=== PATIENT | female | born 1955 | race Caucasian/White ===

== ENCOUNTER 2016-08-18 07:29 | Inpatient (IN) | payer MEDICARE, OTHER ==
--- NOTE | ~2016-08-18 | OR ---
Unit #: [id number] #: [id number] Patient: RAJ VALVERDE [id number] [address] [place], [place] [address] [id number] MR#: [id number] NAME: RAJ VALVERDE ROOM: [facility] Date of Procedure: 08/18/2016 Admission Date: 08/18/2016 Surgeon: Payton Iqbal M.D. : 1955 Attending Physician: Payton Iqbal M.D. Primary Care Physician: Cristian Adair D.O. OPERATIVE REPORT PREOPERATIVE DIAGNOSIS Right foot gangrene. POSTOPERATIVE DIAGNOSIS Right foot gangrene. PROCEDURES PERFORMED 1. Right foot transmetatarsal amputation (55734). 2. Right percutaneous Achilles tendon lengthening (74779). DELIVERY SPECIALIST Jagdeep Masters ANESTHESIA General. INDICATIONS FOR SURGERY The patient is a 60-year-old female with severe peripheral vascular disease and diabetes, who has undergone previous attempted right fourth and fifth toe and ray amputations, which has gone onto sandra dehiscence. The patient is now to undergo revision to a transmetatarsal amputation. DESCRIPTION OF PROCEDURE The patient was taken to the operating room and placed in supine position and general anesthetic was induced. The right foot was identified as the correct operative location during the time-out procedure. The IV antibiotic protocol was followed. The right foot was then prepped and draped in usual sterile fashion. A thigh tourniquet was applied, but was not utilized during the case. A dorsal and plantar fish-mouth type incision was made with care taken to ensure that the medial flaps were quite long. The first, second, and third metatarsal bases were then exposed subperiosteally. The microsagittal saw was used to cut the first, second, and third metatarsal shaft at the junction of the proximal 25% and distal 75%. The plantar skin flap was then sharply developed and the medial forefoot was removed. Bleeding was controlled with electrocautery. The plantar flap was then advanced laterally to cover the soft tissue defects laterally. The subcutaneous tissue was closed with 2-0 Vicryl. The dorsal aspect of the wound was then closed with the dorsal medial flap and this was positioned more plantarward. Subcutaneous tissue again was closed with 2-0 and 3-0 Vicryl. Skin was closed with 3-0 nylon oas-bpkj-kswn-far and simple Unit #: [id number] #: [id number] Patient: RAJ VALVERDE. The #11 knife blade was then used to perform a percutaneous Achilles tendon lengthening. The medial half of the Achilles tendon was severed 2.5 cm proximal to the insertion. A second lateral hemisection was performed 3 cm proximal to the first hemisection. A third medial hemisection was performed 3 cm proximal to the intermediate hemisection. The ankle was then dorsiflexed until 10 degrees of ankle dorsiflexion was easily obtained. These wounds were closed with Steri-Strips. Xeroform gauze, dressing, sponges, Webril, and a posterior fiberglass splint were applied. The patient was then transported to the recovery room in stable condition. ESTIMATED BLOOD LOSS Minimal. COMPLICATIONS None. SPECIMENS Forefoot. TOURNIQUET TIME Zero. Dictated by.Jagdeep Blair/jaylan TD: 08/18/2016 13:41 JOB #: [id number] OPERATIVE REPORT X Ferdinand Iqbal MD X PROCEDURE OPERATIVE NOTE
--- NOTE | ~2016-08-18 | A ---
[facility] Nutrition Therapy DATE: 08/19/16 Patient: RAJ VALVERDE Physician: ANITHA Address: [address] [facility] Room/Bed: [address] [place] [address], Zip: [place] [address] Admit Date: 08/18/16 Date of : [birth year] Height: 5 0 Weight: 149 68 NUTRITIONAL ASSESSMENT: REASON: CONSULT RE: DIET EDUCATION PT IS 60 Y.O. FEMALE ADMITTED FOR (R) FOOT GANGRENE HT: 5'0", WT: 149# (68 KG), BMI: 29.1 RD PROVIDED WRITTEN AND VERBAL CC DIET EDUCATION. RD PROVIDED LIST OF FOODS TO AVOID/LIMIT AND FOODS TO EAT MORE OFTEN. RD ALSO EMPHASIZED IMPORTANCE OF CONSUMING CONSISTENT MEAL SCHEDULE AND BALANCED MEALS. PT REPORTS DRINKING DIET SODAS DAILY. THIS RD ENCOURAGED TO DRINK MORE WATER IN PLACE OF DIET SODAS. PT VERBALIZED UNDERSTANDING OF THE TOPIC. PT REPORTED NO DIET QUESTIONS AT THIS TIME. RD TO REMAIN AVAILABLE. RECOMMENDATIONS: 1. ENCOURAGE COMPLIANCE OF CURRENT DIET ORDER-CC RD WILL F/U PER PROTOCOL Respectfully, VINCENT VERA MS, RD, LD [facility] cc: client file
--- NOTE | ~2016-08-18 | DS ---
Unit #: [id number] #: [id number] Patient: RAJ VALVERDE [id number] [address] [place], [place] [address] [id number] I MR#: [id number] NAME: RAJ VALVERDE ROOM: 453 Age: 60 Sex: F Admission Date: 08/18/2016 : 1955 Discharge Date: 08/21/2016 Attending Physician: Payton Iqbal M.D. Primary Care Physician: Cristian Adair D.O. DISCHARGE SUMMARY CHIEF COMPLAINT Right foot wound dehiscence. HISTORY OF PRESENT ILLNESS This 60-year-old female is 1 month status post right fourth and fifth toe and ray amputations for distal forefoot gangrene. Prior to surgery, the patient had undergone right superficial artery and popliteal artery stenting. Since her operation, she has been in rehabilitation where she has been receiving IV vancomycin. Cultures from her operation grew methicillin resistant Staphylococcus aureus. Her vascular surgeon, Dr. Lindsey, stated on July 28 that the patient may be unable to heal a foot amputation, but she will most likely be able to heal a talwx-kwm-cjru amputation. Unfortunately, the patient already has a left lnipg-hwr-acdc amputation and we are trying to preserve her right foot if possible because of sandra dehiscence of the right lateral foot wound, we are going to convert this to a transmetatarsal amputation. If this fails, she may require sxtbd-gpi-dvvk amputation. HOSPITAL COURSE The patient was taken to the operating room on the date of admission where she underwent right foot transmetatarsal amputation and Achilles tendon lengthening. She had a stable postoperative course. She was seen by the internal medicine service on a daily basis. Her diabetes was controlled with a sliding scale insulin. She continued to receive IV vancomycin. She received 1 unit of packed red blood cells on the second postoperative day because her hematocrit was 22.2. Dressing was changed on the second postoperative day. Wounds were healing appropriately and she was ready for discharge back to rehab on August 21, 2016. FINAL DIAGNOSES 1. Right foot wound dehiscence. 2. Peripheral vascular disease. 3. Insulin dependent diabetes. 4. Diabetic neuropathy. 5. Chronic anemia. PLAN 1. The patient was discharged back to rehabilitation. 2. She will continue occupational and physical therapies. 3. She should be nonweightbearing on the right foot for a total of three weeks. 4. Dressing should remain intact. If the dressing needs to be changed, please contact Dr. Iqbal for instructions. 5. Continue elevation of the wound. Unit #: [id number] #: [id number] Patient: RAJ VALVERDE 6. Follow up in my office in one week for dressing change and wound check. DISCHARGE MEDICATIONS Discharge medications are as follows: 1. Advair 250/50 Diskus 1 puff inhaled b.i.d. p.r.n. shortness of breath. 2. Triamcinolone 0.5% cream topical b.i.d. 3. Magnesium oxide 400 mg p.o. b.i.d. 4. Vancomycin 1 g IV q.24 hours through the PICC line. 5. Xarelto 10 mg p.o. daily for 2 weeks. 6. Neurontin 100 mg p.o. t.i.d. 7. PROzac 40 mg p.o. daily. 8. Trazodone 100 mg p.o. daily. 9. Claritin 10 mg p.o. b.i.d. p.r.n. 10. Amlodipine 10/20 mg 1 tab p.o. daily. 11. Lipitor 40 mg p.o. q.h.s. 12. Clonidine 0.1 mg p.o. b.i.d. 13. Lisinopril 10 mg p.o. daily. 14. Lantus insulin 20 units subcutaneously q.h.s. 15. Percocet 5/325 one or two p.o. q.6 hours p.r.n. pain. 16. Prilosec 20 mg p.o. daily. 17. Calcium plus vitamin D 1 p.o. daily. 18. Vitamin D 50,000 units p.o. weekly. 19. NovoLog insulin per sliding scale. Dictated by.Jagdeep Blair/jessie TD: 08/20/2016 08:49 JOB #: [id number] DISCHARGE SUMMARY X Ferdinand Iqbal MD X DISCHARGE SUMMARY
--- NOTE | ~2016-08-18 | EKG ---
PATIENT: RAJ VALVERDE UNIT #: [id number] Ventricular Rate: 90 BPM Atrial Rate: 90 BPM P-R Interval: 176 ms QRS Duration: 92 ms Q-T Interval: 382 ms QTC Calculation(Bezet): 467 ms P [place]: 64 degrees Calculated R [place]: -32 degrees Calculated T [place]: 16 degrees Diagnosis Line: Normal sinus rhythm Diagnosis Line: Left axis deviation Diagnosis Line: Abnormal ECG Diagnosis Line: When compared with ECG of 04-JUL-2016 06:55, Diagnosis Line: No significant change was found Diagnosis Line: Confirmed by BARB MALAGON MD ([id number]) on Diagnosis Line: 08/18/2016 12:09:06 PM INTERPRETING MD: JESSE
--- NOTE | ~2016-08-18 | HP ---
Unit #: [id number] #: [id number] Patient: RAJ VALVERDE [id number] [address] [place], [place] [address] [id number] MR#: [id number] NAME: RAJ VALVERDE ROOM: Age: Sex: F Admission Date: 08/18/2016 : 1955 Attending Physician: Payton Iqbal M.D. Primary Care Physician: Cristian Adair D.O. HISTORY AND PHYSICAL CHIEF COMPLAINT Right foot wound dehiscence. HISTORY OF PRESENT ILLNESS This 60-year-old female is one month status post right fourth and fifth toe and fourth and fifth ray resections for distal forefoot gangrene. Prior to surgery the patient had undergone right superficial femoral artery and popliteal artery stenting. Since her operation she has been in rehab where she has been receiving IV vancomycin through a PICC line. Cultures from her operation revealed MRSA. Her vascular surgeon, Dr. Lindsey, had stated on July 28 that the patient may be unable to heal a foot amputation but that she will most likely be able to heal a below the knee amputation. She now has sandra dehiscence of her wound with gangrene of the third toe. The patient is admitted for attempted revision to a complete transmetatarsal amputation. She is aware that if this does not work she will end up with a below the knee amputation. PAST MEDICAL HISTORY Past medical history is remarkable for hypercholesterolemia, insulin dependent diabetes, osteomyelitis, peripheral vascular disease, anemia, former smoker, hypertension, hyperlipidemia, hypothyroidism, osteoarthritis, uterine cancer. HOME MEDICATIONS Advair Diskus, calcium plus D, Claritin, clonidine, Flonase, gabapentin, insulin, Lipitor, lisinopril, magnesium oxide, omeprazole, pantoprazole, Prozac, tramadol, trazodone, triamcinolone cream, vitamin D. ALLERGIES Adhesive bandages, Cubicin, daptomycin, latex, penicillin. PAST SURGICAL HISTORY Left below the knee amputation, multiple left foot surgeries. PHYSICAL EXAMINATION GENERAL: In general this is an obese female in no acute distress. She is alert, oriented and cooperative. HEENT: Pharynx is clear. NECK: The neck is supple, without masses. HEART: Exam reveals a regular sinus rhythm without murmurs or gallops. LUNGS: The lungs are clear. ABDOMEN: The abdomen is soft and nontender, without masses or organomegaly. Unit #: [id number] #: [id number] Patient: RAJ VALVERDE EXTREMITIES: Evaluation of the right foot demonstrates sandra dehiscence of her lateral wound with gangrene of the third toe. Pulses are absent. Her hallux and second toe appear viable and capillary refill appears normal. Sensation is decreased in a stocking distribution. ADMITTING DIAGNOSIS Failed right attempted fourth and fifth toe amputations with forefoot gangrene. PLAN The patient will undergo attempted revision to transmetatarsal amputation and percutaneous Achilles tendon lengthening of her remaining right foot. This procedure was described along with the risks of bleeding, infection, nerve damage, failure of the wound to heal, need for higher level amputation. She understands the above risks and agrees to proceed. Dictated by Jagdeep Nguyen/dolores TD: 08/17/2016 19:22 JOB #: [id number] HISTORY AND PHYSICAL X Ferdinand Iqbal MD X HISTORY AND PHYSICAL
--- NOTE | ~2016-08-18 | CO ---
Unit #: [id number] #: [id number] Patient: RAJ VALVERDE [id number] [address] [place], [place] [address] [id number] I MR#: [id number] NAME: RAJ VALVERDE ROOM: 453 Age: 60 Sex: F Admission Date: 08/18/2016 : 1955 Attending Physician: Payton Iqbal M.D. Primary Care Physician: Cristian Adair D.O. Consultation Date: 08/18/2016 CONSULTATION REPORT REASON FOR CONSULTATION Postoperative diabetes management. HISTORY OF PRESENT ILLNESS The patient is a 60-year-old female with a past medical history of hypertension, hyperlipidemia, diabetes, peripheral vascular disease, chronic obstructive pulmonary disease, cervical cancer, chronic pain and anemia. She was admitted by Dr. Iqbal for right foot gangrene. Of note, the patient was hospitalized at [facility] 07/03/2016 through 07/08/2016 for gangrenous fifth toe of the right foot. Ultimately the patient underwent right superficial femoral artery and popliteal artery stenting. She subsequently had right fourth and fifth toe and fourth and fifth ray resection. She went to rehab, where she had been receiving IV vancomycin. She apparently had wound dehiscence with gangrene of the third toe. She underwent right transmetatarsal amputation today. HIPS was consulted for diabetes management. The patient states that her blood sugars are typically in the 150 to 250 range. She denies any chest pain. No difficulty breathing. No cough or cold symptoms. She states that her pain control is adequate. She is tolerating p.o. PAST MEDICAL HISTORY 1. Admission to [facility] 07/03/2016 through 07/08/2016 for gangrenous fifth toe of the right foot. Please see history of present illness for details. 2. Anemia. 3. Hypertension. 4. Hyperlipidemia. 5. Diabetes. 6. Peripheral vascular disease, status post stents to the lower extremities. 7. Chronic obstructive pulmonary disease, not on home oxygen. 8. Cervical cancer. 9. Chronic pain. PAST SURGICAL HISTORY 1. Lower extremity stenting. 2. Revision of left fvihl-qlu-elhc amputation. 3. Left lvhka-kfz-vnbg amputation. 4. Toe amputations. 5. Transmetatarsal amputation involving the right foot. 6. Hernia repair. 7. Hysterectomy. SOCIAL HISTORY Unit #: [id number] #: [id number] Patient: RAJ VALVERDE The patient is currently at rehab. There is no tobacco or alcohol use. FAMILY HISTORY The patient was a foster child and does not know her biological parents. REVIEW OF SYSTEMS A complete review of systems is negative except as indicated in the history of present illness. PHYSICAL EXAMINATION GENERAL: The patient is a female who is awake and alert, eating. VITALS: Temperature 97.3, pulse 85, blood pressure 149/75, respiratory rate 13. HEENT: The head is atraumatic. Mucous membranes are moist. NECK: Supple. Trachea midline. LUNGS: Clear to auscultation bilaterally with no increased work of breathing. HEART: Regular rate and rhythm. ABDOMEN: Soft and nontender with bowel sounds present in all four quadrants. EXTREMITIES: The left lower extremity has been previously amputated below the knee. The right foot demonstrates an elier bandage that is clean, dry and intact. NEUROLOGIC: The patient is awake and alert. She follows commands. PSYCHIATRIC: Mood and affect are normal. The patient is cooperative. SKIN: Skin of examined areas is warm and dry. DIAGNOSTIC STUDIES LABORATORY: CBC from this morning showed white blood cell count 12.6, hemoglobin 7.9, hematocrit 24.1. CMP notable for glucose 179, BUN 29, creatinine 1.1, alkaline phosphatase 99, albumin 2.5. CARDIOVASCULAR: EKG from today showed normal sinus rhythm with a rate of 90 beats per minute. ASSESSMENT The patient is a 60-year-old female with 1. Status post right transmetatarsal amputation. 2. Normocytic anemia. The patient's hemoglobin was 7.7 on 07/09/2016 and it is 7.9 today. Estimated blood loss per the operative report is not listed, but the dictation is pending. 3. Hypertension. 4. Hyperlipidemia. 5. Diabetes. 6. Peripheral vascular disease, status post lower extremity stenting. 7. Chronic obstructive pulmonary disease, not on home oxygen. 8. Cervical cancer. 9. Chronic pain. 10. Former smoker. PLAN 1. Regarding diabetes, I have ordered a hemoglobin A1c as well as low-sliding scale insulin with Accu-Cheks. 2. Regarding chronic obstructive pulmonary disease, I have ordered supplemental oxygen with p.r.n. duo-nebs. Thank you very much for the consultation. We will follow the patient Unit #: [id number] #: [id number] Patient: RAJ VALVERDE closely with you. Dictated by... Jagdeep Moore/gz TD: 08/18/2016 16:11 JOB #: [id number] CONSULTATION REPORT X Jenny Rodriguez MD CONSULTATION REPORT
--- NOTE | ~2016-08-18 | DS ---
Unit #: [id number] #: [id number] Patient: RAJ VALVERDE [id number] [address] [place], [place] [address] [id number] I MR#: [id number] NAME: RAJ VALVERDE ROOM: 453 Age: 60 Sex: F Admission Date: 08/18/2016 : 1955 Discharge Date: 08/24/2016 Attending Physician: Payton Iqbal M.D. Primary Care Physician: Cristian Adair D.O. DISCHARGE SUMMARY ADDENDUM The patient had some difficulty breathing and was seen by the dietetic aide who diagnosed her with mild acute on chronic kidney disease stage 3 associated with proteinuria. Her lisinopril was stopped temporarily. She was also receiving IV fluids for nausea. Her dressing was changed on her fifth postoperative day. Wounds were healing well. She was ready for discharge on August 24, 2016. PLAN The only change is that her lisinopril will be stopped and instead we will continue her on Cardizem at her current dose. She will follow up with me in my office in one week. Dictated by.Danisha. Jagdeep Nguyen/jeny TD: 08/24/2016 11:31 JOB #: [id number] DISCHARGE SUMMARY X Ferdinand Iqbal MD X DISCHARGE SUMMARY
--- NOTE | ~2016-08-18 | CO ---
Unit #: [id number] #: [id number] Patient: RAJ CHIN [id number] [address] [place], [place] [address] [id number] I MR#: [id number] NAME: RAJ CHIN ROOM: 453 Age: 60 Sex: F Admission Date: 08/18/2016 : 1955 Attending Physician: Payton Iqbal M.D. Primary Care Physician: Cristian Adair D.O. Consultation Date: 08/21/2016 CONSULTATION REPORT REASON FOR CONSULTATION Mild acute on chronic kidney disease. HISTORY OF PRESENT ILLNESS Ms. Chin is a pleasant 60-year-old white female with a longstanding history of diabetes, who was admitted back on the for ongoing care of a right foot gangrene. She has since had a partial amputation of the right foot after having undergone recent stenting to the right leg. The patient has been recovering here on the 4th floor and we were asked to see today for a bump in her creatinine. Again, the patient has been diabetic for over 20 years with what appears to be poor control. She is maintained on both lisinopril and Benicar. She does not use any NSAIDs at home. She has no history of kidney stones that she is aware of. She has had an amputation below the knee on the left side and denies any problems with swelling issues on the right. No urinary complaints. She did have some mild nausea earlier this morning. No chest discomfort or shortness of breath. She is a former smoker. PAST MEDICAL HISTORY Significant for chronic kidney disease, stage 3; hypertension; diabetes; anemia chronic disease; hyperlipidemia; peripheral vascular disease with previous stents to the leg; COPD; cervical cancer; and chronic pain syndrome. PAST SURGICAL HISTORY She has had a left gxeen-xqr-ikmw amputation, lower extremity stenting, toe amputations, hernia repair, and hysterectomy. CURRENT MEDICATIONS As follows; Xarelto 10 mg a day, Levemir insulin as directed, Colace 100 mg b.i.d., Prozac 40 mg a day, Os-Adelfo D daily, Symbicort inhaler, Lipitor 40 mg at bedtime, Neurontin 100 mg t.i.d., lisinopril 10 mg a day, Claritin 10 mg a day, magnesium oxide 400 mg b.i.d., clonidine 0.1 mg b.i.d., trazodone 100 mg daily, Protonix 40 mg daily, Norvasc 10 mg a day, Benicar 20 mg a day, sliding scale insulin and p.r.n. ALLERGIES She has quoted allergies to adhesives, penicillin, daptomycin. FAMILY HISTORY The patient is a foster child and does not know much about her family history other than the fact that a couple of family members have diabetes. She is unaware of any kidney failure or dialysis. Unit #: [id number] #: [id number] Patient: RAJ CHIN SOCIAL HISTORY The patient is a former smoker. Has currently been living at rehab. No alcohol or drugs use history. REVIEW OF SYSTEMS A complete 12-point review of systems was completed with the above findings. In addition, she denies any fevers or chills. No headache. No dizziness. No nosebleed, sore throat, or earache. No chest pain or palpitations. No cough or hemoptysis. No hematemesis. No bright red blood per rectum or melena. No hematuria. No abdominal pain. No rashes. No itching. No flank pain. No night sweats or hot flashes. No intolerance to heat or cold. No bleeding issues. No recent weight changes. Unless otherwise indicated, the review of systems was negative. PHYSICAL EXAMINATION VITAL SIGNS: The patient is afebrile, pulse 103, respiratory rate 18, and blood pressure 139/70. I's and O's are positive by 1400 mL. GENERAL: This is a 60-year-old white female, alert, eating lunch now, in no acute distress. HEENT: Head is atraumatic and normocephalic. Eyes show pale conjunctivae with no scleral icterus. No nasal drainage. No nosebleed. Oropharynx is moist. No thrush. NECK: Shows no rigidity, no JVD. HEART: Tachycardic, but regular with no murmurs, gallops, or rubs appreciated. LUNGS: Clear anteriorly with no wheezing or rhonchi. Breathing is nonlabored. ABDOMEN: Soft, nontender, and nondistended. Bowel sounds are present. EXTREMITIES: The patient has a left xzbru-dfl-fjxe amputation with prosthesis. Right lower leg and foot are dressed. She does not appear to have any right lower extremity edema. SKIN: Dry without rashes. MUSCULOSKELETAL: No CVA tenderness to palpation. NEUROLOGIC: Cranial nerves are grossly intact with no gross motor deficits. LYMPHATIC: There is no neck or cervical lymphadenopathy. PSYCHIATRIC: Mood appears normal, affect is somewhat flat. DIAGNOSTIC STUDIES LABORATORY RESULTS: Chemistry this morning noteworthy for a sodium of 134, potassium 4.9, Chloride 106, bicarb 25, glucose 330, BUN 35, creatinine 1.5, magnesium 2. Yesterday's creatinine was 1.4. Hemoglobin yesterday was 8.3, with no peripheral eosinophilia. Hemoglobin A1c was 9.4 on the . Looking back through 2017, her creatinine has ranged anywhere between 0.9 and 1.7. No recent urine studies here since 2015, but that one did have 2+ protein with no significant blood. Looking back at her prior urinalysis going back to 2009 and all of them contained some degree of proteinuria and some of them 3+. IMAGING STUDIES: I do see a previous CT scan from 11/2013 that showed the kidneys were okay anatomically. ASSESSMENT AND PLAN 1. Mild acute on chronic kidney disease, stage 3. The patient does appear to have chronic kidney disease, stage 3 with baseline creatinine in the low 1s with proteinuria consistent with diabetic nephropathy. She does have a mild acute injury, but still overall this is likely in her retirement range. I do agree with stopping her proton pump inhibitor and I Unit #: [id number] #: [id number] Patient: RAJ CHIN will be changing her to Pepcid. We do need to recheck her urinalysis and quantitate her urinary protein. With a creatinine increase, we can stop her lisinopril, but continue her Benicar. She is getting some fluids for some nausea earlier, but I do believe we can stop this after the first bag is infused. 2. Proteinuria. We will leave on Benicar for now and I will be changing her Norvasc to a nondihydropyridine calcium channel jaimee in the form of Cardizem for its antiproteinuric effect since we will be stopping the lisinopril. 3. Hypertension. The patient's blood pressure is reasonable and we will be making the above changes as noted. 4. Diabetes with poor control. 5. Anemia of chronic disease. I will be checking iron stores and replacing as needed. 6. Diabetes with peripheral vascular disease now status post partial right foot amputation. I would like to thank Dr. Rodriguez for this consult and the opportunity to participate in evaluation and care of Ms. Chin. Dictated by... Aldo Burrell Jr., M.D. KATH/jaylan TD: 08/21/2016 20:40 JOB #: [id number] CONSULTATION REPORT X Aldo Burrell MD X CONSULTATION REPORT
[~2016-08-18 07:29] MED LIST: ACID REDUCER20 MG PO; ADVAIR 250-501 EAC1 INH; ALBUTEROL17 G1 PO; ALBUTEROL17 GM INH; ALBUTEROL20 ml INH; AMLODIPINE BESYL5 MG PO; ASCORBIC ACID500 M2 PO; ASPIRINEC PO; CALCIUM + D 6001 TA1 PO; CLARITIN10 M2 PO; CLONIDINE HCL0.1 MG PO; COLACE PO; DAPTOMYCIN IV; ESTER C PO; FERRO-TIME325 MG PO; FLONASE 0.05% N16 G1; GUAIFENESIN LA600 M1 PO; IRON325 ( 651 PO; KCL PO; KEFZOL2 GM INJ; KLOR-CON 88 ME1 PO; LANTUS SOLOSTAR3 ML SUBQ; LANTUS100 U/M1 SQ; LANTUS100 U/ML SUBQ; LASIX PO; LASIX20 MG PO; LEVAQUIN PO; LEVAQUIN750 MG PO; LEVEMIR SUBQ; LEVEMIR100 UNITS/ SUBQ; LIPITOR40 MG PO; LISINOPRIL20 MG PO; LISINOPRIL5 MG PO; MAG-OX 400400 M1 PO; METFORMIN PO; METHADONE HCL10 MG PO; METHADONE PO; METHADOSE10 MG PO; MULTI VITAMIN1 EACH PO; MULTIVITAMIN1 UDCAP PO; NEURONTIN PO; NEURONTIN100 MG PO; NOVOLOG; NOVOLOG FL100 UNIT/1; NOVOLOG FL100 UNIT/1 SUBQ; NOVOLOG100 U/M2 SUBQ; NOVOLOG100 U/ML SUBQ; NOVOLOG7030 SUBQ; OMEPRAZOLE40 M1 PO; OMEPRAZOLE40 MG PO; PANTOPRAZOLE SO40 MG PO; PERCOCET 5/321 UDTAB PO; PERCOCET 7.5-31 EACH PO; PERCOCET5/325 PO; PROZAC PO; RANITIDINE HCL300 M1 PO; REGLAN5 MG PO; SIMVASTATIN40 MG PO; SYMBICORT INH; TRAMADOL HCL50 M1 PO; TRAMADOL HCL50 M2; TRAMADOL HCL50 M2 PO; TRAZODONE HCL100 MG PO; TRIAMCINOLONE A15 G3 TOP; VANCOMYCIN; VENTOLIN5 MG/ML INH; VICTOZA0.6 MG/0.1; VICTOZA0.6 MG/0.1 SQ; VITAMIN D50000 UNIT PO; ZANTAC300 MG PO; ZESTRIL5 MG PO; ZINC SULFATE PO; ZOCOR20 MG PO; ZOFRAN PO
[2016-08-18] MEDS ORDERED: PRILOSEC10 M1 PO (08:28)
[2016-08-18] MEDS ORDERED: VANCOMYCIN HCL1 GM IV (08:29)
[2016-08-18] MEDS ORDERED: PERCOCET 5/321 UDTAB PO (08:30)
[2016-08-18] MEDS ORDERED: AZOR 10/20 MG T1 TAB PO (08:31)
[2016-08-18 09:11] LABS: BASOPHIL% 0.4 % (0-2.5); EOSINOPHIL# 0.3 X10e3 (0-0.7); EOSINOPHIL% 2.2 % (0.0-7.0); HEMATOCRIT 24.1 % (35.0-45.0); HEMOGLOBIN 7.9 gm/dL (12.0-16.0); LYMPHOCYTE# 1.1 X10e3 (1.0-3.5); LYMPHOCYTE% 8.9 % (17.0-45.0); MEAN CELL VOLUME 83.7 FL (83-96); MEAN CORPUSCULAR HEMOGLOBIN 27.6 PG (28-34); MEAN PLATELET VOLUME 6.6 FL (6.5-11.5); MONOCYTE# 0.5 X10e3 (0-1.0); NEUTROPHIL# 10.7 X10e3 (1.5-7.1); NEUTROPHIL% 84.5 % (40-75); PLATELET COUNT 242 X10e3 (140-420); RED BLOOD COUNT 2.88 X10e (3.90-5.30); RED CELL DISTRIBUTION WIDTH 15.2 % (11.0-15.5); WHITE BLOOD COUNT 12.6 X10e3 (4.0-10.5)
[2016-08-18 09:15] LABS: DIFF IND NO
[2016-08-18 09:44] LABS: ALBUMIN SERUM 2.5 g/dL (3.5-5.0); BILIRUBIN,TOTAL 0.5 mg/dL (0.2-2.0); BUN/CREATININE RATIO 26.36; CALCIUM SERUM 9.1 mg/dL (8.4-10.2); CREATININE SERUM 1.1 mg/dL (0.6-1.4); GLOM FILT RATE Estimated 54.2 mL/min (>60); POTASSIUM 4.2 mmol/L (3.5-5.1); PROTEIN TOTAL SERUM 7.2 g/dL (6.0-8.3)
[2016-08-19 04:25] LABS: HEMATOCRIT 22.2 % (35.0-45.0); HEMOGLOBIN 7.3 gm/dL (12.0-16.0); MEAN CELL VOLUME 84.4 FL (83-96); MEAN CORPUSCULAR HEMOGLOBIN 27.6 PG (28-34); MEAN CORPUSCULAR HGB CONC 32.7 g/dL (30-36); MEAN PLATELET VOLUME 6.8 FL (6.5-11.5); RED BLOOD COUNT 2.63 X10e (3.90-5.30); RED CELL DISTRIBUTION WIDTH 14.8 % (11.0-15.5); WHITE BLOOD COUNT 9.7 X10e3 (4.0-10.5)
[2016-08-19 04:58] LABS: ALBUMIN SERUM 2.2 g/dL (3.5-5.0); BILIRUBIN,TOTAL 0.6 mg/dL (0.2-2.0); BUN/CREATININE RATIO 26.36; CALCIUM SERUM 8.4 mg/dL (8.4-10.2); CREATININE SERUM 1.1 mg/dL (0.6-1.4); GLOM FILT RATE Estimated 54.2 mL/min (>60); POTASSIUM 4.5 mmol/L (3.5-5.1); PROTEIN TOTAL SERUM 6.3 g/dL (6.0-8.3)
[2016-08-20 03:51] LABS: BASOPHIL% 0.5 % (0-2.5); EOSINOPHIL# 0.3 X10e3 (0-0.7); EOSINOPHIL% 3.4 % (0.0-7.0); HEMATOCRIT 24.7 % (35.0-45.0); HEMOGLOBIN 8.3 gm/dL (12.0-16.0); LYMPHOCYTE# 1.2 X10e3 (1.0-3.5); LYMPHOCYTE% 13.2 % (17.0-45.0); MEAN CELL VOLUME 84.7 FL (83-96); MEAN CORPUSCULAR HEMOGLOBIN 28.5 PG (28-34); MEAN CORPUSCULAR HGB CONC 33.7 g/dL (30-36); MEAN PLATELET VOLUME 6.7 FL (6.5-11.5); MONOCYTE# 0.6 X10e3 (0-1.0); MONOCYTE% 6.5 % (3.0-12.0); NEUTROPHIL# 7.2 X10e3 (1.5-7.1); NEUTROPHIL% 76.4 % (40-75); PLATELET COUNT 203 X10e3 (140-420); RED BLOOD COUNT 2.92 X10e (3.90-5.30); RED CELL DISTRIBUTION WIDTH 14.8 % (11.0-15.5); WHITE BLOOD COUNT 9.4 X10e3 (4.0-10.5)
[2016-08-20 03:56] LABS: DIFF IND NO
[2016-08-20 11:13] LABS: BUN/CREATININE RATIO 22.85; CALCIUM SERUM 8.3 mg/dL (8.4-10.2); CREATININE SERUM 1.4 mg/dL (0.6-1.4); POTASSIUM 4.8 mmol/L (3.5-5.1)
[2016-08-21 04:17] LABS: BUN/CREATININE RATIO 23.33; CALCIUM SERUM 8.6 mg/dL (8.4-10.2); CREATININE SERUM 1.5 mg/dL (0.6-1.4); GLOM FILT RATE Estimated 37.9 mL/min (>60); POTASSIUM 4.9 mmol/L (3.5-5.1)
[2016-08-21 15:05] LABS: URINE SOURCE CLEAN CATCH
[2016-08-21 15:10] LABS: URINE APPEARANCE CLEAR; URINE BILIRUBIN NEG (NEG); URINE BLOOD 3+ (NEG); URINE COLOR YELLOW; URINE GLUCOSE 500 MG/DL (NEG); URINE KETONE NEG (NEG); URINE LEUKOCYTE ESTERASE NEG (NEG); URINE NITRATE NEG (NEG); URINE PH 5.5 (5-8); URINE PROTEIN 3+ (NEG); URINE UROBILINOGEN 0.2 MG/DL (NEG)
[2016-08-21 15:12] LABS: URBCS1 AUWI 25-50 /[HPF] (0-2); URINE BACTERIA AUWI NEG (NEGATIVE); URINE SQUAMOUS EPITHELIAL CELL OCC /[HPF]
[2016-08-21 15:13] LABS: CULTURE INDICATED? NO
[2016-08-21 15:47] LABS: CREATININE,RANDOM URINE 92 mg/dL
[2016-08-21 15:50] LABS: TOTAL PROTEIN,RANDOM URINE 301 mg/dl (<10)
[2016-08-22 03:37] LABS: HEMATOCRIT 23.4 % (35.0-45.0); HEMOGLOBIN 7.7 gm/dL (12.0-16.0); MEAN CELL VOLUME 86.5 FL (83-96); MEAN CORPUSCULAR HEMOGLOBIN 28.3 PG (28-34); MEAN CORPUSCULAR HGB CONC 32.7 g/dL (30-36); MEAN PLATELET VOLUME 7.1 FL (6.5-11.5); RED BLOOD COUNT 2.71 X10e (3.90-5.30); RED CELL DISTRIBUTION WIDTH 15.2 % (11.0-15.5); WHITE BLOOD COUNT 11.6 X10e3 (4.0-10.5)
[2016-08-22 03:56] LABS: BUN/CREATININE RATIO 22.35; CALCIUM SERUM 9.2 mg/dL (8.4-10.2); CREATININE SERUM 1.7 mg/dL (0.6-1.4); GLOM FILT RATE Estimated 32.8 mL/min (>60); POTASSIUM 5.3 mmol/L (3.5-5.1)
[2016-08-22 04:02] LABS: IRON SERUM 23 ug/dL (28-170); TOTAL IRON BINDING CAPACITY 215 ug/dL (269-535); TRANSFERRIN 154 mg/dL (192-382); TRANSFERRIN SATURATION 11 % (20-50)
[2016-08-23 03:02] LABS: HEMATOCRIT 23.8 % (35.0-45.0); HEMOGLOBIN 7.7 gm/dL (12.0-16.0); MEAN CELL VOLUME 86.4 FL (83-96); MEAN CORPUSCULAR HEMOGLOBIN 27.9 PG (28-34); MEAN CORPUSCULAR HGB CONC 32.3 g/dL (30-36); RED BLOOD COUNT 2.76 X10e (3.90-5.30); RED CELL DISTRIBUTION WIDTH 15.1 % (11.0-15.5); WHITE BLOOD COUNT 11.4 X10e3 (4.0-10.5)
[2016-08-23 03:38] LABS: BUN/CREATININE RATIO 31.66; CALCIUM SERUM 8.8 mg/dL (8.4-10.2); CREATININE SERUM 1.2 mg/dL (0.6-1.4); POTASSIUM 5.2 mmol/L (3.5-5.1)
[2016-08-24 03:34] LABS: BASOPHIL# 0.1 X10e3 (0-0.3); BASOPHIL% 0.8 % (0-2.5); EOSINOPHIL# 0.3 X10e3 (0-0.7); HEMATOCRIT 24.6 % (35.0-45.0); HEMOGLOBIN 8.1 gm/dL (12.0-16.0); LYMPHOCYTE# 1.4 X10e3 (1.0-3.5); LYMPHOCYTE% 14.5 % (17.0-45.0); MEAN CELL VOLUME 85.6 FL (83-96); MEAN CORPUSCULAR HEMOGLOBIN 28.3 PG (28-34); MEAN CORPUSCULAR HGB CONC 33.1 g/dL (30-36); MEAN PLATELET VOLUME 6.8 FL (6.5-11.5); MONOCYTE# 0.5 X10e3 (0-1.0); MONOCYTE% 4.7 % (3.0-12.0); NEUTROPHIL# 7.5 X10e3 (1.5-7.1); PLATELET COUNT 214 X10e3 (140-420); RED BLOOD COUNT 2.87 X10e (3.90-5.30); RED CELL DISTRIBUTION WIDTH 15.8 % (11.0-15.5); WHITE BLOOD COUNT 9.7 X10e3 (4.0-10.5)
[2016-08-24 03:37] LABS: DIFF IND NO
[2016-08-24 04:07] LABS: BUN/CREATININE RATIO 24.61; CALCIUM SERUM 8.7 mg/dL (8.4-10.2); CREATININE SERUM 1.3 mg/dL (0.6-1.4); GLOM FILT RATE Estimated 44.7 mL/min (>60); POTASSIUM 4.4 mmol/L (3.5-5.1)
== END 2016-08-24 13:30 | DRG 240 ==
LOC: CSUR 07:29 → CPACUOF 11:30 → C4B 14:20
PROVIDERS: Family Medicine; Internal Medicine Nephrology; Nurse Practitioner; Orthopaedic Surgery
PROC: 0Y6M0ZC Detachment at Right Foot, Partial 3rd Ray, Open Approach (ICD-10-PCS; 2016-08-18)
PROC: 0L8N3ZZ Division of Right Lower Leg Tendon, Percutaneous Approach (ICD-10-PCS; 2016-08-18)
PROC: 0Y6M0Z9 Detachment at Right Foot, Partial 1st Ray, Open Approach (ICD-10-PCS; principal; 2016-08-18 10:00)
PROC: 0Y6M0ZB Detachment at Right Foot, Partial 2nd Ray, Open Approach (ICD-10-PCS; 2016-08-18 10:00)
PROC: 30233N1 Transfusion of Nonautologous Red Blood Cells into Peripheral Vein, Percutaneous Approach (ICD-10-PCS; 2016-08-19)
DX: E11.52 Type 2 diabetes mellitus with diabetic peripheral angiopathy with gangrene (principal); N17.9 Acute kidney failure, unspecified; E11.40 Type 2 diabetes mellitus with diabetic neuropathy, unspecified; E11.65 Type 2 diabetes mellitus with hyperglycemia; N18.3 Chronic kidney disease, stage 3 (moderate); T87.81 Dehiscence of amputation stump; Z79.4 Long term (current) use of insulin; I73.9 Peripheral vascular disease, unspecified; J44.9 Chronic obstructive pulmonary disease, unspecified; Z89.512 Acquired absence of left leg below knee; D53.9 Nutritional anemia, unspecified; E78.00 Pure hypercholesterolemia, unspecified; I12.9 Hypertensive chronic kidney disease with stage 1 through stage 4 chronic kidney disease, or unspecified chronic kidney disease; Z87.891 Personal history of nicotine dependence; Z89.421 Acquired absence of other right toe(s); R80.9 Proteinuria, unspecified; D63.8 Anemia in other chronic diseases classified elsewhere; E78.5 Hyperlipidemia, unspecified; M19.90 Unspecified osteoarthritis, unspecified site; E03.9 Hypothyroidism, unspecified; Z88.0 Allergy status to penicillin; Z91.040 Latex allergy status; Z90.710 Acquired absence of both cervix and uterus; E87.5 Hyperkalemia; J45.909 Unspecified asthma, uncomplicated; G89.4 Chronic pain syndrome
CPT/HCPCS: 80048; 80053; 81003; 82570; 82728; 82947; 83036; 83540; 83550; 83735; 84156; 85025; 85027; 86850; 86900; 86901; 86923; 93005; 94010; 94640; 94664; 94760; 97163; 97530; G8978-GP; G8979-GP; J0330; J1815; J2250; J2270; J2710; J3010; J3370; P9016

== ENCOUNTER 2016-09-14 16:11 | Inpatient (IN) | payer MEDICARE, OTHER ==
--- NOTE | ~2016-09-14 | CO ---
Unit #: [id number] #: [id number] Patient: REBECCA CHIN [id number] [address] [place], [place] [address] [id number] I MR#: [id number] NAME: REBECCA CHIN ROOM: 470 Age: 60 Sex: F Admission Date: 09/14/2016 : 1955 Attending Physician: Patyon Iqbal M.D. Primary Care Physician: Cristian Adair D.O. Consultation Date: 09/25/2016 CONSULTATION REPORT REASON FOR CONSULTATION Followup. DISCUSSION Ms. Rebecca Chin is a 60-year-old white female seen in room 470. Patient pleasant, cooperative during interview. Patient recently had surgery on her right leg and right foot. Reports medication is helping her but still feeling sad, depressed. Denied any suicidal or homicidal ideation. Denied any psychotic symptoms. MENTAL STATUS EXAMINATION General appearance: Patient dressed casually, lying comfortably in bed. Patient was in pain. Right arm and right leg was in bandage. Attention span and concentration fair. Speech regular. Rate coherent. Pleasant, cooperative during interview. Attention span and concentration was fair. Oriented in time, place, and person. Mood and affect sad, dysphoric, anxious. Thought process was coherent. Thought content: The patient denied any thoughts of harming self or others. Denied any psychotic symptoms. Recent and remote memory fair. Language: Able to name objects, repeat phrases. Fund of knowledge: (1) . Insight and judgment fair to poor. DIAGNOSIS Major depressive disorder, recurrent, severe, F33.2. SECONDARY DIAGNOSIS Deferred. ASSESSMENT AND PLAN 1. Supportive psychotherapy and psychoeducation provided to patient. 2. Educated about benefits and side effects of medications and course and prognosis of illness. If needed, consider further adjustment of medication. We will continue to follow. Dictated by... Omari Whitaker M.D. Tashia TD: 09/27/2016 14:33 JOB #: [id number] Unit #: [id number] #: [id number] Patient: REBECCA CHIN CONSULTATION REPORT Page 1 of 1 X Omari Whitaker MD CONSULTATION REPORT
--- NOTE | ~2016-09-14 | CO ---
Unit #: [id number] #: [id number] Patient: RAJ VALVERDE [id number] [address] [place], [place] [address] [id number] MR#: [id number] NAME: RAJ VALVERDE ROOM: [facility] Age: 60 Sex: F Admission Date: 09/14/2016 : 1955 Attending Physician: Payton Iqbal M.D. Primary Care Physician: Cristian Adair D.O. Consultation Date: 09/16/2016 CONSULTATION REPORT REASON FOR CONSULTATION Antibiotic management. HISTORY OF PRESENT ILLNESS This is a 60-year-old female who is diabetic and has peripheral vascular disease. The patient has a history of a right transmetatarsal amputation but has had some delayed healing. The patient is currently awaiting a right BKA. However, when she presented, she also had some pain and swelling in her right hand. The patient was admitted to the hospital for further workup. She has been placed on vancomycin and cefepime; however, she has now developed some acute kidney injury, and vancomycin has been placed on hold. ID was asked to evaluate for antibiotic management. The patient also has positive blood cultures. The patient currently has surgery in the room waiting for her to go for both an I and D of her right hand due to abnormal MRI findings and the BKA. PAST MEDICAL HISTORY 1. Chronic kidney disease. 2. Hypertension. 3. Diabetes. 4. Proteinuria. 5. Anemia of chronic disease. 6. Hyperlipidemia. 7. Peripheral vascular disease with prior stents to the legs. 8. COPD. 9. Cervical cancer. 10. Chronic pain syndrome. PAST SURGICAL HISTORY 1. Left BKA. 2. Toe amputations. 3. Hernia repair. 4. Hysterectomy. ALLERGIES Penicillin, daptomycin and adhesive. MEDICATIONS Cefepime; vancomycin has been discontinued. SOCIAL HISTORY Past tobacco. No current alcohol or drug abuse. Unit #: [id number] #: [id number] Patient: RAJ VALVERDE REVIEW OF SYSTEMS The patient denies any fever or chills. She denies any chest pain or shortness of breath. She denies any GI signs or symptoms. She does report right hand pain and swelling and no significant feeling in her lower extremities. PHYSICAL EXAMINATION VITAL SIGNS: Temperature is 98.5, pulse 101, blood pressure 153/81, respiratory rate 18. GENERAL: This is a female in no apparent distress who does appear ill and not feeling well in the bed. HEENT: Her pupils are equal. NECK: Her neck is supple. CARDIOVASCULAR: S1, S2 with tachycardia. PULMONARY: Diminished in the bases but no wheezes or rhonchi noted. ABDOMEN: Positive bowel sounds. Soft and nontender with no organomegaly appreciated. EXTREMITIES: Right hand with significant swelling near her thumb with tenderness and erythema. She also has a right foot that is currently in an SOLEDAD dressing and healed BKA on the left side. DIAGNOSTIC STUDIES LABS: BUN 95, creatinine 2.3, sodium 131, potassium 4, chloride 100, CO2 24, bilirubin 0.5, AST 65, ALT 24. Last lactic acid is 1.5. CRP has not been done recently. White blood cell count is 27,000, which is improved from 34,000 on admission. Hemoglobin 8.4, hematocrit 26.7, platelets 317. Urinalysis shows WBCs innumerable with positive pyuria. Urine culture shows greater than 100,000 colonies of gram-negative rods. Blood cultures, 1 of 2, shows gram-positive cocci in clusters. IMPRESSION This is a 60-year-old diabetic female with peripheral vascular disease awaiting a right foot amputation secondary to delayed healing from her transmetatarsal amputation. The patient also is found to have right hand swelling and pain, and MRI was abnormal with fluid collections and questionable septic tenosynovitis. At this time the patient is current on her way to surgery for an I and D of her hand, as well as BKA. Will continue to follow O.R. cultures. Will need to cover the patient for MRSA in light of her positive blood cultures and her hand infection. The patient has been taken off vancomycin per renal due to her renal issues, and it was noted after the patient was initiated on daptomycin (however, she has not received a dose of daptomycin) that she has an allergy to daptomycin. Will hold daptomycin prior to her first dose and will change her antibiotics potentially to Zyvox. However, this is bacterial (1) or ceftaroline. However, her gram-negative anna and her urine will need to be followed closely for any Pseudomonas. This case will be discussed in detail with Dr. Abimael Escalante, who will also evaluate the patient today. Thank you for allowing us to participate in the care of this patient. Further recommendations to follow pending the patient's clinical course. Dictated by... Nelly Malik A.P.R.N. for Abimael Escalante M.D. Unit #: [id number] #: [id number] Patient: RAJ VALVERDE/eliot TD: 09/16/2016 12:33 JOB #: [id number] CONSULTATION REPORT Page 1 of 1 X X CONSULTATION REPORT
--- NOTE | ~2016-09-14 | CO ---
Unit #: [id number] #: [id number] Patient: REBECCA CHIN [id number] [facility] [address] [facility]. [place], [place] [address] [id number] I MR#: [id number] NAME: REBECCA CHIN ROOM: 470 Age: 60 Sex: F Admission Date: 09/14/2016 : 1955 Attending Physician: Payton Iqbal M.D. Primary Care Physician: Cristian Adair D.O. Consultation Date: 09/21/2016 CONSULTATION REPORT REASON FOR CONSULTATION Depression and followup. HISTORY OF PRESENT ILLNESS Ms. Rebecca Chin is a 60-year-old white female seen as a followup on 09/21/16. The patient was seen in room 470 bed-1 at [facility]. The patient's right arm was bandaged. Patient still in a lot of pain. The patient had surgery recently on her leg as well as on her arm for abscess. Patient was treated for right foot gangrene and right volar forearm and hand infection. The patient reported that she is still feeling anxious, nervous, sad, depressed, trouble sleeping but medications are helping her. The patient currently denied any suicidal or homicidal ideation or psychotic symptom. REVIEW OF SYSTEMS Complete review of systems is unremarkable. MENTAL STATUS EXAMINATION GENERAL APPEARANCE: Patient dressed casually, lying comfortably in bed but seemed to be in pain, anxious, nervous. Attention span and concentration fair. Speech regular rate, coherent. Oriented in time, place and person. Mood and affect were sad, dysphoric, anxious. Thought process coherent. Thought content - the patient denied any thoughts of harming self or others or any psychotic symptoms. Recent and remote memory fair. Language - able to name object, repeat phrases. Fund of knowledge fair. Insight and judgment fair to slightly impaired. DIAGNOSIS PSYCHIATRIC: Major depressive disorder, recurrent, severe - F33.2. ASSESSMENT/PLAN 1. Supportive psychotherapy and psychoeducation provided to patient. 2. Educated about benefits and side effects of medication, and course and prognosis of illness. 3. Advised to continue with current medications. We will continue to follow. If needed, consider further additional medication. Please feel free to call if any questions. Telephone number [phone]. Dictated by... Omari Whitaker M.D. Unit #: [id number] #: [id number] Patient: REBECCA CHIN TRICE/lul TD: 09/23/2016 05:05 JOB #: [id number] CONSULTATION REPORT Page 1 of 1 X Omari Whitaker MD CONSULTATION REPORT
--- NOTE | ~2016-09-14 | CO ---
Unit #: [id number] #: [id number] Patient: RAJ VALVERDE [id number] [address] [place], [place] [address] [id number] I MR#: [id number] NAME: RAJ VALVERDE ROOM: [facility] Age: 60 Sex: F Admission Date: 09/14/2016 : 1955 Attending Physician: Payton Iqbal M.D. Primary Care Physician: Cristian Adair D.O. Consultation Date: 09/14/2016 CONSULTATION REPORT REASON FOR CONSULTATION Diabetes management. HISTORY OF PRESENT ILLNESS The patient is a 60-year-old female with past medical history of hypertension, hyperlipidemia, diabetes, peripheral vascular disease, COPD, cervical cancer, chronic pain who was admitted by Dr. Iqbal for right-hand cellulitis. Of note, the patient was hospitalized at [facility] August 18 through August 24, 2016, for right foot gangrene. She underwent right transmetatarsal amputation during that admission. She apparently saw Dr. Iqbal today for followup. She was noted to have right hand swelling and redness. The patient states that this has been going on since September 12, 2016. She states that it has become increasingly swollen, red, and painful. She denies any trauma to the hand. She also, per Dr. Iqbal's notes, has failed right transmetatarsal amputation with wound dehiscence and early cellulitis of the right leg. She was admitted for IV antibiotics. An infectious disease consult has been ordered. She has been started on vancomycin. HIPS was consulted for diabetes. The patient states that she has had chills but no fever. She denies chest pain, no difficulty breathing. She states that her appetite has been good. She denies any vomiting or diarrhea. No urinary symptoms. PAST MEDICAL HISTORY 1. Admission to [facility] August 18 through August 24, 2016, for right foot wound dehiscence and gangrene. She underwent transmetatarsal amputation during that admission. 2. Hypertension. 3. Hyperlipidemia. 4. Diabetes. 5. Peripheral vascular disease, status post stents to the lower extremities. 6. COPD, not on home oxygen. 7. Cervical cancer. 8. Chronic pain. PAST SURGICAL HISTORY 1. Lower extremity stenting. 2. Revision of left zyujj-uzz-lwls amputation. 3. Left rskjn-mfl-ghtv amputation. 4. Toe amputations. 5. Transmetatarsal amputation involving the right foot. 6. Hernia repair. Unit #: [id number] #: [id number] Patient: RAJ VALVERDE 7. Hysterectomy. SOCIAL HISTORY The patient is currently at rehab. There is no tobacco or alcohol use. FAMILY HISTORY Notable for the patient being a foster child and not knowing her biological parents. REVIEW OF SYSTEMS A complete review of systems is negative except as indicated in the HPI. DIAGNOSTIC STUDIES LABORATORY: There are no labs. IMAGING: Per Dr. Iqbal's notes, the patient had a right hand x-ray that showed degenerative joint disease. PHYSICAL EXAMINATION VITAL SIGNS: Pending. GENERAL: The patient is a female who is awake and alert in no acute distress. HEENT: The head is atraumatic. Mucous membranes are moist. NECK: Supple. Trachea is midline. CARDIOVASCULAR: Regular rate and rhythm. LUNGS: Clear to auscultation bilaterally with no increased work of breathing. ABDOMEN: Soft, nontender with bowel sounds present in all four quadrants. EXTREMITIES: The left lower extremity has been previously amputated below the knee. The right lower extremity demonstrates an Finesse bandage that is clean, dry, and intact. The right leg proximal to the Finesse bandage is erythematous, warm, and tender to palpation. The right hand extending to the forearm demonstrates erythema, warmth, edema and tenderness to palpation. She also has decreased range of motion secondary to pain. She does have a 2+ radial pulse. NEUROLOGIC: The patient is awake and alert. She follows commands. PSYCHIATRIC: Mood and affect are normal. The patient is cooperative. SKIN: Skin of examined areas is warm and dry. ASSESSMENT The patient is a 60-year-old female with: 1. Right-hand cellulitis: Vancomycin has been ordered by Dr. Iqbal. Infectious disease consult is pending. 2. Failed right transmetatarsal amputation. Per Dr. Iqbal's note, she will need right lhdbw-hdw-onmd amputation. 3. Hypertension. 4. Hyperlipidemia. 5. Diabetes: The patient's hemoglobin A1c was 9.4 on August 18, 2016. 6. Peripheral vascular disease, status post lower extremity stenting. 7. Chronic obstructive pulmonary disease. 8. Cervical cancer. 9. Chronic pain. 10. Former smoker. PLAN Regarding diabetes, I have ordered low-dose sliding scale insulin with Accu-Cheks. I have spoken with the nurses regarding trying to remove a ring that is present on the patient's right ring finger. Unit #: [id number] #: [id number] Patient: RAJ VALVERDE Thank you very much for the consultation. We will follow the patient along closely with you. Dictated by... Jenny Rodriguez M.D. Tony TD: 09/14/2016 17:28 JOB #: [id number] CONSULTATION REPORT Page 1 of 1 X Jenny Rodriguez MD X CONSULTATION REPORT
--- NOTE | ~2016-09-14 | CO ---
Unit #: [id number] #: [id number] Patient: RAJ VALVERDE [id number] [address] [place], [place] [address] [id number] MR#: [id number] NAME: RAJ VALVERDE ROOM: 35767 Age: 60 Sex: F Admission Date: 07/03/2016 : 1955 Attending Physician: Brenden Echavarria M.D. Primary Care Physician: Cristian Adair D.O. Consultation Date: 07/05/2016 CONSULTATION REPORT REASON FOR CONSULTATION Peripheral vascular disease. HISTORY OF PRESENT ILLNESS The patient is a 60-year-old female with multiple medical problems including insulin-dependent diabetes, status post left below-knee amputation by Dr. Iqbal a couple of years ago, who presents with a painful right fifth toe. She states that about two weeks ago she stubbed her toe and since then it has gradually become more painful and black appearing. She does state that she has some subjective fevers. She also notes that her glucoses have been elevated at home. She says that before this incident, she had no issues with ambulation with her prosthesis. She also does not have any history of claudication symptoms. She denies any previous history of nonhealing wounds or infections of her right leg. 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 PAST SURGICAL HISTORY Includes left below-knee amputation with revision [place] [address] Iqbal, hernia repair, and hysterectomy. MEDICATIONS Include Prozac, calcium, Levemir, Advair, Lipitor, Neurontin, lisinopril, Claritin, magnesium oxide, NovoLog, Ventolin, clonidine, vitamin D, Lantus, Protonix, tramadol, trazodone, triamcinolone and Flonase. ALLERGIES Adhesives, penicillin, and daptomycin. SOCIAL HISTORY The patient lives with her friend. Previous smoking history, quit two years ago. Denies alcohol or illicit drug use. FAMILY HISTORY The patient is a foster child. Does not know her biological parents. REVIEW OF SYSTEMS CONSTITUTIONAL: Positive for fevers and chills. HEENT: Negative ear pain. Negative tinnitus. RESPIRATORY: Positive shortness of breath. Negative cough. Unit #: [id number] #: [id number] Patient: RAJ VALVERDE CARDIOVASCULAR: Recent chest pain. No palpitations. GI: Denies nausea, vomiting, or diarrhea. : Denies hematuria. HEME/LYMPH: Denies easy bruising. ENDOCRINE: Denies excessive thirst or hunger. MUSCULOSKELETAL: Positive back pain. Negative neck pain. INTEGUMENTARY: Negative rash. Negative pruritus. PHYSICAL EXAMINATION VITAL SIGNS: Temperature 98.4, heart rate 98, blood pressure 134/67, respirations 18, and 98% on 2 L. GENERAL: No acute distress. HEENT: No scleral icterus. NECK: Supple. No JVD. LUNGS: Nonlabored respirations. ABDOMEN: Soft, nontender, and nondistended. CARDIOVASCULAR: Regular rate and rhythm. EXTREMITIES: 2+ femoral pulses. Multiphasic right dorsalis pedis and posterior tibial pulse. Right fifth toe is gangrenous, foul smelling. No drainage. Some surrounding erythema of the foot. NEUROLOGIC: Alert, awake, and oriented and interactive and appropriate. DIAGNOSTIC STUDIES LABORATORY RESULTS: CBC; WBC 11.4, hematocrit 25.8, and platelets 253. INR is 1.0. Sodium is 134, potassium is 4.0, chloride is 106, CO2 is 24, BUN 29, creatinine is 1.7, and glucose is 405. IMAGING STUDIES: X-ray showed no acute fractures. Preliminary read is negative for osteomyelitis. ABIs; right dorsalis pedis is 0.68 and right posterior tibial is 0.85, and they are blunted waveforms of right dorsalis pedis in comparison to the posterior tibial, and toe pressures are zero. ASSESSMENT AND PLAN A 60-year-old female with atherosclerosis with gangrene of the right lower extremity. Based on her history of insulin-dependent diabetes, suspicious for tibial disease, as well as inframalleolar disease, given her toe pressures of zero. The patient will require an angiogram to further evaluate her vasculature, and if there is a stenosis or obstruction that could be improved with a balloon angioplasty and/or stenting to maximize her arterial inflow into heel and presumptive amputation by Dr. Iqbal. Given her current creatinine, 1.7, which is increased from her admission of 1.2, I would like to see it improve with some hydration before proceeding with an angiogram. We could use CO2 as well, however, this is not as ideal for tibial work. She is currently on vancomycin and Zosyn, which is appropriate for her gangrene. We will touch base with the medical team as well as Dr. Iqbal regarding further plan for this patient. I did talk to the patient about the risks and benefits of an angiogram procedure. The primary benefit of the procedure would be to evaluate her right lower extremity vasculature and improve flow with ballooning or stenting if possible. The risks of the procedure include, but are not limited to, access site bleeding, contrast induced nephropathy, injury to the vessels, and potential need for further procedures. She expressed understanding and elected to proceed once this procedure can be scheduled and once her creatinine level has stabilized. Unit #: [id number] #: [id number] Patient: RAJ VALVERDE Dictated by... Jagdeep Mahajan TD: 07/05/2016 17:43 JOB #: [id number] CONSULTATION REPORT X X CONSULTATION REPORT
--- NOTE | ~2016-09-14 | MR188 ---
[facility] A Service of [facility] & [facility] RADIOLOGY TEXT RESULTS PATIENT: RAJ VALVERDE LOCATION: [facility] 470-01 : [birth year] UNIT #: [id number] AGE: [address]: Ferdinand Iqbal MD SEX: F ORDER DR: [id number] [place] [id number] [facility]. [place], [place] [address] [id number] I MR#: [id number] Acc #: [id number] NAME: RAJ VALVERDE : 1955 SEX: F STUDY DATE/TIME: 09/15/2016 19:04 UNIT: [facility] ROOM: [facility] STUDY DESCRIPTION: MR Wrist Wo Contrast Rt Attending Physician: Payton Iqbal M.D. Ordering Physician: Payton Iqbal M.D. Primary Care Physician: Cristian Adair D.O. MRI CENTER REPORT This report is preliminary unless electronic signature is present. EXAM MRI of the right wrist without contrast HISTORY 60-year-old female presents with hand, wrist and proximal forearm pain and swelling. Clinical concern for possible septic arthritis or septic tenosynovitis. Patient diabetic. COMPARISON Right hand films, 09/14/2016 FINDINGS Multiplanar multiecho imaging was performed of the right forearm utilizing a high field magnet and dedicated protocol. The examination demonstrates advanced arthritic changes of the first CMC joint with proximal subluxation of the first metacarpal base. Mild arthritic change is seen within the wrist but no evidence of septic arthritis. Diffuse forearm soft tissue swelling with multiple fluid collections seen along the volar flexor tendons within the forearm extending into the distal forearm as well as some fluid within the flexor tendons within the palmar aspect of the hand. In the setting of swelling and erythema and possible infection this would be concerning for septic tenosynovitis. Mild edema within the flexor musculature of the forearm but no definite intramuscular abscess identified. These fluid collections along the flexor tendons range in length over 6.0 cm in the mid to proximal forearm and up to 3.4 cm in the distal forearm. The proximal collection is predominately along the flexor digitorum profundus and flexor carpi ulnaris tendons. IMPRESSION 1. Diffuse soft tissue swelling within the forearm extending into the hand with prominent fluid collections along the flexor tendons, STS. [facility] A Service of [facility] RADIOLOGY TEXT RESULTS PATIENT: RAJ VALVERDE LOCATION: [facility] 470-01 : [birth year] UNIT #: [id number] AGE: [address]: Ferdinand Iqbal MD SEX: F ORDER DR: most prominent along the flexor digitorum profundus and flexor carpi ulnaris tendons within the mid forearm extending to the distal forearm with fluid about all of the flexor tendons within the palmar aspect of the hand. In the setting of active infection this would be concerning for septic tenosynovitis. No intramuscular abscess identified although there is some generalized edema within the flexor musculature, possibly reactive. Circumferential edema may represent overlying cellulitis. 2. No MRI findings to suggest septic arthritis. Arthritic change is seen at the first CMC joint. Results called and discussed with Dr. Iqbal. Dictated by... Maranda Ramirez M.D. THIS IS AN ELECTRONICALLY VERIFIED REPORT Maranda Ramirez M.D. at 09/16/2016 12:27 PM Elham TD: 09/16/2016 09:38 JOB #: [id number] MRI CENTER REPORT Page 1 of 1 COPY
--- NOTE | ~2016-09-14 | CO ---
Unit #: [id number] #: [id number] Patient: REBECCA CHIN [id number] [facility] [address] [facility]. [place], [place] [address] [id number] I MR#: [id number] NAME: REBECCA CHIN ROOM: 470 Age: 60 Sex: F Admission Date: 09/14/2016 : 1955 Attending Physician: Payton Iqbal M.D. Primary Care Physician: Cristian Adair D.O. Consultation Date: 09/23/2016 CONSULTATION REPORT REASON FOR CONSULTATION Depression. HISTORY OF PRESENT ILLNESS Ms. Rebecca Chin is a 60-year-old white female, seen in room 470, bed 1 at [facility] on 09/23/2016. The patient continues to feel sad, depressed, anxious, withdrawn, isolative, because of her recent surgery on her right leg and on her right arm. The patient's vital signs are stable, but reported she is in pain. Vital signs; temperature 97.8, pulse 79, respirations 19, blood pressure 134/54. The patient was sad, depressed, flat affect. Reported having problem with the anxiety, trouble sleeping, but denied any suicidal or homicidal ideation. Denied any psychotic symptom. REVIEW OF SYSTEMS Except for the pain and anxiety. MENTAL STATUS EXAMINATION General appearance; the patient dressed in hospital attire, lying comfortably in bed, seemed to be in pain, withdrawn, anxious. Attention span and concentration, fair. Speech, regular rate and coherent. Oriented in time, place, and person. Mood and affect were sad and dysphoric. Thought process, coherent. Thought content, the patient denied any thoughts of harming self or others. Recent and remote memory, fair. The patient denied any psychotic symptom. Language, able to name object and repeat phrases. Fund of knowledge, fair. Insight and judgment, fair to slightly impaired. DIAGNOSIS Psychiatric: Major depressive disorder, recurrent, severe, F33.2. ASSESSMENT AND PLAN 1. Supportive psychotherapy and psychoeducation provided to the patient. 2. Educated about benefits and side effects of medication and course and prognosis of illness. 3. Advised to continue with current combination of medication and if needed consider further adjustment of medication. We will continue to follow and make necessary adjustment of medication if needed. The patient is currently on Cymbalta 60 mg daily. Dictated by... Omari Whitaker M.D. Unit #: [id number] #: [id number] Patient: REBECCA CHIN TRICE/jaylan TD: 09/24/2016 23:40 JOB #: [id number] CONSULTATION REPORT Page 1 of 1 X Omari Whitaker MD X CONSULTATION REPORT
--- NOTE | ~2016-09-14 | HP ---
Unit #: [id number] #: [id number] Patient: RAJ VALVERDE [id number] [address] [place], [place] [address] [id number] I MR#: [id number] NAME: RAJ VALVERDE ROOM: 461 Age: 60 Sex: F Admission Date: 09/14/2016 : 1955 Attending Physician: Payton Iqbal M.D. Primary Care Physician: Cristian Adair D.O. HISTORY AND PHYSICAL CHIEF COMPLAINT Right hand cellulitis HISTORY OF PRESENT ILLNESS The patient is a 60-year-old female with insulin dependent diabetes, diabetic neuropathy and recent right foot revision transmetatarsal amputation four weeks ago, who now presents with a five-day history of worsening pain, swelling, erythema and stiffness in the right hand and right forearm. Right hand radiographs show first carpometacarpal joint arthritis with collapse of the trapezium. The patient denies any blunt or sharp trauma to the right hand. She has not had any recent IVs in the right hand. She does have a failed right transmetatarsal amputation with dehiscence of the wound and early cellulitis of the right leg. She is admitted for IV antibiotics. She is allergic to penicillin and also has chronic kidney disease. She will therefore be placed on a lower dose of vancomycin. PAST MEDICAL HISTORY Past medical history is remarkable for insulin dependent diabetes, chronic kidney disease stage 3, hypertension, anemia of chronic disease, hyperlipidemia, peripheral vascular disease with previous stents to her leg, COPD, history of tobacco use, cervical cancer, chronic pain syndrome, left below the knee amputation. PAST SURGICAL HISTORY Left below the knee amputation, bilateral lower extremity stenting, bilateral multiple foot surgeries, right foot revision transmetatarsal amputation four weeks ago, herniorrhaphy, hysterectomy. HOME MEDICATIONS 1. Levemir insulin as directed. 2. Colace 100 mg p.o. b.i.d. 3. Prozac 40 mg p.o. daily. 4. Os-Adelfo D one p.o. daily. 5. Symbicort inhaler. 6. Lipitor 40 mg p.o. q.h.s. 7. Neurontin 100 mg p.o. t.i.d. 8. Lisinopril 10 mg daily. 9. Claritin 10 mg p.o. daily. 10. Magnesium oxide 400 mg p.o. b.i.d. 11. Clonidine 0.1 mg p.o. b.i.d. 12. Trazodone 100 mg daily. 13. Protonix 40 mg p.o. daily. Unit #: [id number] #: [id number] Patient: RAJ VALVERDE 14. Norvasc 10 mg p.o. daily. 15. Benicar 20 mg p.o. daily. 16. Sliding-scale insulin. MEDICAL ALLERGIES Adhesives, penicillin, daptomycin, Cubicin, latex. FAMILY HISTORY The patient is a foster child and does not know much about her family. SOCIAL HISTORY The patient is a past smoker. She no longer smokes. She has been currently living in rehab. She denies alcohol or drug use. PHYSICAL EXAMINATION GENERAL: In general this is a well-developed, well-nourished female in no acute distress. HEENT: Pharynx is clear. NECK: Neck is supple, without masses. HEART: Exam reveals a regular sinus rhythm without murmurs or gallops. LUNGS: The lungs are clear. ABDOMEN: The abdomen is soft and nontender. EXTREMITIES: Examination of the right hand demonstrates swelling and redness of the thenar eminence. There is no fluctuance. Patient is unable to straighten the interphalangeal joints of her fingers. She has pain with finger motion. Wrist dorsiflexion is 30 degrees, palmar flexion is 30 degrees with mild discomfort. The patient has erythema tracking up her volar forearm to her mid forearm. She has a negative thumb compression test. Elbow and right shoulder motion are normal. Evaluation of the right foot demonstrates dehiscence of her medially placed plantar flap of her transmetatarsal amputation. There is no purulent drainage but there is some erythema and necrosis in the foot. No pulses are palpated. Sensation is decreased. DIAGNOSTIC STUDIES IMAGING: Right hand radiographs show collapse of the trapezium with first carpometacarpal joint arthritis. ADMITTING DIAGNOSES 1. Right hand and volar forearm cellulitis. 2. Failed right transmetatarsal amputation. 3. Insulin dependent diabetes. 4. Diabetic neuropathy. 5. Chronic kidney disease. PLAN 1. Admit for IV antibiotics. Will start with vancomycin 500 mg p.o. q.12 h. and the pharmacy will adjust according to her peak and trough doses. 2. Hospitalist consult. 3. Infectious Disease consult. 4. Wet to dry dressing changes right foot. 5. The patient will most likely require revision to below the knee amputation of the right leg. Unit #: [id number] #: [id number] Patient: RAJ VALVERDE Dictated by Payton Iqbal M.D. RTH/dolores TD: 09/14/2016 15:58 JOB #: [id number] HISTORY AND PHYSICAL Page 1 of 1 X Ferdinand Iqbal MD X HISTORY AND PHYSICAL
--- NOTE | ~2016-09-14 | US140 ---
[facility] A Service of [facility] RADIOLOGY TEXT RESULTS PATIENT: RAJ VALVERDE LOCATION: [facility] 470-01 : 59 UNIT #: [id number] AGE: [address]: Ferdinand Iqbal MD SEX: F ORDER DR: [id number] [facility] [address] [facility]. [place], [place] [address] [id number] I MR#: [id number] #: [id number] NAME: RAJ VALVERDE : 1955 SEX: F STUDY DATE/TIME: 09/15/2016 14:32 UNIT: [facility] ROOM: [facility] STUDY DESCRIPTION: US UE Veins Unilat or Ltd Stdy Attending Physician: Payton Iqbal M.D. Ordering Physician: Viji Frias A.P.R.N. Primary Care Physician: Cristian Adair D.O. MEDICAL IMAGING REPORT This report is preliminary unless electronic signature is present EXAM Right upper extremity venous duplex. DATE OF EXAM 09/15/2016 HISTORY Right upper extremity swelling and redness in the right hand for 3 days. Evaluate for deep vein thrombosis. FINDINGS Crain-scale images of the right upper extremity were obtained as well as Doppler waveform spectral analysis and color flow Doppler imaging. There is normal blood flow and compressibility in the right internal jugular vein, as well as the right subclavian, axillary, brachial, cephalic and basilic veins. There is no evidence of deep vein thrombosis in the right upper extremity. The right upper extremity edema at the hand and wrist is noted. IMPRESSION Negative right upper extremity venous duplex with no evidence of deep vein thrombosis. Dictated by... Red Brown M.D. THIS IS AN ELECTRONICALLY VERIFIED REPORT Red Brown M.D. at 09/16/2016 8:21 AM EDITH/sola TD: 09/15/2016 19:01 JOB #: [id number] [facility] A Service of [facility] RADIOLOGY TEXT RESULTS PATIENT: RAJ VALVERDE [facility] [place] [address] [id number] : [birth year] UNIT #: [id number] AGE: [address]: Ferdinand Iqbal MD SEX: F ORDER DR: MEDICAL IMAGING REPORT Page 1 of 1 COPY
--- NOTE | ~2016-09-14 | CO ---
Unit #: [id number] #: [id number] Patient: RAJ CHIN [id number] [address] [place], [place] [address] [id number] I MR#: [id number] NAME: RAJ CHIN ROOM: [facility] Age: 60 Sex: F Admission Date: 09/14/2016 : 1955 Attending Physician: Payton Iqbal M.D. Primary Care Physician: Cristian Adair D.O. Consultation Date: 09/15/2016 CONSULTATION REPORT REASON FOR CONSULTATION Acute on chronic kidney disease. HISTORY OF PRESENT ILLNESS Ms. Chin is a 60-year-old female with diabetes and peripheral vascular disease whom we were asked to see again for acute on chronic kidney disease. We saw her back at the beginning of this month for a similar presentation with acute on chronic kidney disease, but her creatinine is worse on presentation here. The patient tells me that she has been rehabbing at [facility] and they noticed some issues with her right hand becoming swollen with redness and tenderness. She was diagnosed with cellulitis and sent back here to [facility]'s under the care of Dr. Iqbal. She is also apparently having issues with healing on her right foot from a partial transmetatarsal amputation and is going to be going for a topov-usg-uwcl amputation tomorrow. The patient was noted to be sent out last time on IV vancomycin. She apparently took that for couple of weeks after she left, but says that she has been off it for a week or two, although she is unclear on the timing. She has not been on any NSAIDs that I can tell she is on Benicar. She denies any vomiting or diarrhea. No urinary complaints. No swelling or rashes. She was restarted on vancomycin upon presentation here. I am unaware of any recent contrasted studies. PAST MEDICAL HISTORY Significant for chronic kidney disease stage 3, hypertension, diabetes, proteinuria, anemia of chronic disease, hyperlipidemia, peripheral vascular disease with previous stents to the legs, COPD, cervical cancer, and chronic pain syndrome. PAST SURGICAL HISTORY Left lscnr-mun-ekma amputation, lower extremity stenting, toe amputations, hernia repair, and hysterectomy. MEDICATIONS Current hospital medications are as follows: Percocet p.r.n., Cardizem CD 120 mg a day, vitamin D weekly, iron tablet b.i.d., clonidine 0.1 mg b.i.d., Cymbalta 30 mg a day, Prozac 20 mg a day, Dulera inhaler, Neurontin 100 mg every 8 hours, MAGnesium-Oxide b.i.d., Benicar 20 mg a day, Protonix 40 mg a day, Xarelto 10 mg a day, vancomycin 1 g IV per pharmacy dosing, half normal saline at [facility] and p.r.n. ALLERGIES She has quoted allergies to penicillin, daptomycin, and adhesive. Unit #: [id number] #: [id number] Patient: RAJ CHIN FAMILY HISTORY The patient is a foster child, so she does not know much about her family history. She does think there is some diabetes, but no knowledge of any dialysis or kidney failure. SOCIAL HISTORY The patient is a former smoker. She had been at [facility]. No alcohol or drug abuse history. REVIEW OF SYSTEMS A complete 12-point review of systems was completed with the above findings. In addition, she denies any headaches or dizziness at this time. No nosebleed, sore throat, or earache. No chest pain or palpitations. No cough or hemoptysis. No shortness of breath. No abdominal pain. No itching. No flank pain. No fevers. No chills. No night sweats or hot flashes. No intolerance to heat or cold. No bleeding issues. She is unaware of any recent weight changes. Unless otherwise indicated, the review of systems was negative. PHYSICAL EXAMINATION VITAL SIGNS: The patient is afebrile, pulse 89, respiratory rate 18, blood pressure 142/69. I's and O's are positive by 540 mL. GENERAL: This is a 60-year-old white female, who is alert, somewhat lethargic, but in no acute distress. HEENT: Head is atraumatic and normocephalic. Eyes show pale conjunctivae with no scleral icterus. No nasal drainage or nosebleed. Oropharynx is slightly dry. No thrush. NECK: Shows no rigidity, no JVD. HEART: Regular rate and rhythm with no significant murmur or rub appreciated. LUNGS: Clear anteriorly with no wheezing or rhonchi. Breathing is nonlabored. ABDOMEN: Soft, nontender, and nondistended with bowel sounds present. EXTREMITIES: The patient has a left below the knee amputation. Right lower extremity is noteworthy for dressing on her right foot. There is no right lower extremity edema. SKIN: Shows no rashes. MUSCULOSKELETAL: No CVA tenderness to palpation. The right hand is red, warm, and very tender to palpation. NEUROLOGICAL: Cranial nerves are grossly intact with no motor deficits identified. LYMPHATIC: No neck or cervical lymphadenopathy. PSYCHIATRIC: Mood appears slightly depressed. Affect is flat. DIAGNOSTIC STUDIES LABORATORY RESULTS: Last blood sugar was 291. CBC showed a white count of 31, hemoglobin 9.5, platelet count 392 with a left shift, no peripheral eosinophilia. Chemistry showed a sodium of 131, potassium 3.9, chloride 98, bicarb 21, glucose 130, BUN 85, creatinine 2.9. AST slightly high at 68. Albumin low at 1.4. Yes[place]'s white count [place] 13709, yesterday's creatinine was 2.8. Review of labs from last admission shows a discharge creatinine on 08/24/2016 of 1.3, which is likely her baseline. We did do a urine protein creatinine ratio was about 3 g and again her previous urine have all demonstrated some degree of proteinuria with mild microscopic hematuria. ASSESSMENT AND PLAN 1. Acute on chronic kidney disease, stage 3. Etiology may be related to Unit #: [id number] #: [id number] Patient: RAJ CHIN previous long-term vancomycin use with reinstitution here in the hospital. We will have to stop the vancomycin and ask Infectious Disease to see for antibiotic recommendations. We will be sending off urine studies for evaluation. She also is on Benicar, which will have to be stopped. There certainly ongoing infection issues, which may be playing a role, for which she will need antibiotics and fluids which are running. We will recheck labs in the morning and make further recommendations as needed. 2. Hyponatremia. This is likely due to elevated sugars with the correction of her sodium level for elevated sugars. We will be changing her fluids from half normal saline to saline. 3. Hypertension. The patient's blood pressure is reasonable. We will have to stop her Benicar due to her acute kidney injury. 4. Type 2 diabetes, insulin dependent. This is demonstrating very poor control and fluids have been started to assist with hyperglycemia management. 5. Cellulitis right hand. Antibiotics will need to be dosed by Infectious Disease which has been consulted. Unfortunately it looks like she has a daptomycin allergy and we are having to stop the vancomycin. 6. Failed right foot amputation. The patient is on the schedule for tomorrow for a right tpmje-ruz-mpkd amputation. 7. Chronic obstructive pulmonary disease. 8. Peripheral vascular disease. 9. Elevated AST. I will be checking her CPK level. 10. Right hand swelling. We will check a uric acid level to rule out gout as a cause. I would like to thank Dr. Iqbal for this consult and the opportunity to participate in evaluation and care of Ms. Chin. Dictated by... Aldo Burrell Jr., MNura. KATH/jaylan TD: 09/16/2016 03:23 JOB #: [id number] CONSULTATION REPORT Page 1 of 1 X Aldo Burrell MD X CONSULTATION REPORT
--- NOTE | ~2016-09-14 | OR ---
Unit #: [id number] #: [id number] Patient: RAJ VALVERDE [id number] [address] [place], [place] [address] [id number] MR#: [id number] NAME: RAJ VALVERDE ROOM: [facility] Date of Procedure: 09/16/2016 Admission Date: 09/14/2016 Surgeon: Payton Iqbal M.D. : 1955 Attending Physician: Payton Iqbal M.D. Primary Care Physician: Cristian Adair D.O. OPERATIVE REPORT PREOPERATIVE DIAGNOSES 1. Right foot gangrene. 2. Right volar forearm and hand infection. 3. Left shoulder bursitis. POSTOPERATIVE DIAGNOSES 1. Right foot gangrene. 2. Right volar forearm and carpal tunnel abscess. 3. Right thumb, second, third, fourth, fifth finger flexor septic tenosynovitis. 4. Left shoulder subacromial bursitis. PROCEDURES PERFORMED 1. Right xomwh-qdy-ihba amputation with cast application (32965). 2. Right carpal tunnel release and volar forearm incision and drainage (69437). 3. Right first, second, third, fourth, fifth finger flexor septic tenosynovitis incision and drainage (34276 x5). 4. Left shoulder subacromial bursal corticosteroid injection (83461). ASSISTANTS Guerrero and Isma. ANESTHESIA General. INDICATIONS FOR SURGERY The patient is a 60-year-old female with insulin-dependent diabetes and severe peripheral vascular disease, who has undergone previous left ebgxn-waf-rkdh amputation. She then developed necrosis of her toes of her right foot, which required several debridements culminating in a transmetatarsal amputation approximately 3 weeks ago. She now has failed to heal this wound and now has sandra gangrene over the right lower extremity. Additionally, the patient has developed pain, swelling, and erythema in the right palm fingers one through five and volar forearm over the past 5 days of atraumatic etiology. She reports no penetrating injury. She does have a history of falls recently, which have resulted in an injury to her left shoulder. X-rays of the right hand and left shoulder are normal. I suspect that she has an infection in her carpal tunnel and volar forearm as well as in her flexor tendon sheath of the fingers. I also suspect she Unit #: [id number] #: [id number] Patient: RAJ VALVERDE had either as a rotator cuff tear of the left shoulder or subacromial bursitis. She is therefore to undergo incision and drainage of the right hand and carpal tunnel with possible finger tendon sheath aspirations and irrigation. She will also undergo injection of subacromial bursa of her left shoulder. DESCRIPTION OF PROCEDURE The patient was taken to the operating room and placed in supine position and general anesthetic was induced. The left shoulder was injected under sterile conditions through a posterior subacromial approach with a mixture of 4 mL 0.5% plain Marcaine and 1 mL Depo-Medrol (40 mg). She tolerated the procedure well. The right leg and right hand were then identified as the correct operative locations. The right foot was then prepped and draped in the usual sterile fashion. A time-out was performed identifying both the right hand and right leg as the correct operative location. A pneumatic tourniquet was applied to the right thigh. The right leg was prepped and draped in usual sterile fashion. Leg was exsanguinated and thigh tourniquet was inflated to 250 mmHg. A short auxsv-ayk-gliy amputation incision was made with an 8 cm transverse incision 8 cm distal to the knee joint with the development of a long posterior flap. The tibia was exposed with subperiosteal dissection and then cut with the saw. The anterior distal edge was beveled with the saw. The anterior compartment was then divided and the anterior neurovascular bundle was doubly ligated with 0 silk. The fibula was identified subperiosteally and cut with the microsagittal saw 2 cm proximal to the tibial cut. The amputation knife was then used to divide the posterior soft tissues and the amputation was completed. The foot was passed off to be sent to Pathology. The peroneal vessels and posterior tibial vessels were doubly ligated with 0 silk. The tibial nerve was dissected high into the wound and cut proximal to the tibia. Tourniquet was released. There was essentially no bleeding in the legs. The posterior muscle fascia was repaired to the anterior muscle fascia as well as to the periosteum of the tibia with multiple 0 Vicryl amlxqc-hm-bycfm sutures. The closure was done over a medium Hemovac drain. Subcutaneous tissue was closed with 3-0 Vicryl. Skin was closed with skin ezekiel. Xeroform gauze, dressing, sponges, Webril, cast padding, and long-leg fiberglass cast was applied. Tourniquet time for the right leg operation was 17 minutes. The right hand was then prepped and draped in the usual sterile fashion, because the patient had a PICC line in the right upper arm. Tourniquet was not utilized. The right hand was exsanguinated with a 4-inch Esmarch bandage, which was left wrapped around the proximal forearm to act as a tourniquet. A longitudinal incision was made over the carpal tunnel crossing the wrist crease in a zigzag fashion into the volar forearm. Subcutaneous tissue was divided and the transverse carpal ligament was divided and a pus was obtained. This was cultured for aerobic and anaerobic bacteria. The form musculature was then exposed by dividing the volar forearm fascia. There was pus tracking up into the volar forearm deep to the volar forearm musculature. [place] incisions were then made over the distal interphalangeal joints of the second, third, fourth, and fifth finger. The flexor tendon sheaths were opened and pus was obtained. The [place] incision was then placed over the volar aspect of the interphalangeal joint of the thumb. The flexor tendon sheath was opened and again pus was obtained. Transverse incisions were then made over the A1 pulleys of the thumb, index, middle ring, and small fingers. The A1 pulleys were released and pus was Unit #: [id number] #: [id number] Patient: RAJ VALVERDE obtained. A pediatric feeding tube was then placed into the flexor tendon sheath at the A1 roberto and each tendon sheath was irrigated with 50 mL of normal saline. A longitudinal incision was then made over the thenar eminence measuring 2 cm to decompress the inner musculature. The thumb flexor tendon sheath was also irrigated with 50 mL of normal saline. The tourniquet was released with a total tourniquet time of approximately 65 minutes. The finger incisions were loosely closed with simple and horizontal mattress sutures using 3-0 nylon. The carpal tunnel incision was closed with 3-0 nylon horizontal mattress sutures. The volar forearm incision was closed with 3-0 nylon horizontal mattress sutures over a small Carmen drain. Xeroform gauze, fluff dressing, sponges, Kerlix, and a volar splint were applied with two Finesse wraps. The patient was then awakened in the operating room and transported to the recovery room in stable condition. ESTIMATED BLOOD LOSS Minimal. COMPLICATIONS None. SPECIMENS Right hand culture and sensitivity. TOURNIQUET TIME Right hand, 65 minutes; right leg, 17 minutes. Dictated by.Jagdeep Blair/jaylan TD: 09/17/2016 01:41 JOB #: [id number] OPERATIVE REPORT Page 1 of 1 X Ferdinand Iqbal MD X PROCEDURE OPERATIVE NOTE
--- NOTE | ~2016-09-14 | A ---
[facility] Nutrition Therapy DATE: 09/18/16 Patient: RAJ VALVERDE Physician: ANITHA Address: [address] [facility] Room/Bed: [address] [place] [address], Zip: [place] [address] Admit Date: 09/14/16 Date of : [birth year] Height: 5 0 Weight: 149 68.03 NUTRITIONAL ASSESSMENT: REASON: Consult RE: severe protein-calorie malnutrition 60 yo female admitted for R hand cellulitis PMH: T2DM, diabetic neuropathy, CKD stage 3, HTN, anemia, HLD, COPD, tobacco use, cervical cancer, peripheral vascular disease s/p NATHANIEL lower extremities stenting Anthropometrics: Ht: 5'0" Wt: 67.7 kg (149#) BMI: 29.1 Labs: Na+ 133, Gluc 114, Ca++ 7.5, Alb 1.4, AST 44, POC 144, GFR 49.8 Meds: Levemir, Colace, Novolog, Phenergan, NaCl, Pepcid, Vitamin D, Ferrous gluconate I/O & Bowel function: 2250/1850, last BM 09/16 Skin Integrity: Amputations (R foot transmetatarsal, L below knee), stage 2 pressure ucler (coccyx), scar/bruising (abd), closed surgical incision (R hand/RBKA) Edema: R hand/fingers (1+), L hand/fingers (generalized) Estimated Nutrition Needs: Increased protein/calorie needs d/t wounds Assessment: Chart reviewed, events noted. Pt recently had R foot transmetatarsal amputation four weeks ago. Pt has prosthesis L leg d/t L below the knee ambutation in the past. RD visited with pt and family. Pt reported ~10# wt loss over past 2 weeks. Pt reported good appetite and intake. RD encouraged consistent meals throughout the day for adequate calorie and protein intake. RD discussed importance of vitamins and minerals in diet to promote skin healing. Pt agreed to Glucerna shakes daily. Pt and family had no further diet questions at this time. See recommendations below. Dx: Increased protein needs RT current clinical conditions, PMH AEB stage 2 pressure ucler, cellulitis, ~10# wt loss. Intervention: 1. Glucerna shakes daily 2. CC diet Monitoring, Evaluation and Goals: 1. PO intake; consume >75% of meals and supplements 2. Skin; promote skin healing [facility] Nutrition Therapy DATE: 09/18/16 Patient: RAJ JOHNSTONKINS Physician: ANITHA Address: [address] [facility] Room/Bed: [address] [place] [address], Zip: [place] [address] Admit Date: 09/14/16 Date of : [birth year] Height: 5 0 Weight: 149 68.03 3. Labs; WNL: gluc 4. Weight; prevent unintentional wt loss Recommendations: 1. Order chocolate Glucerna shake daily w/ lunch. 2. Add MVI and 100-200 mg Vitamin C daily to promote skin healing. 3. Optimize insulin regimen d/t elevated blood glucose levels. Pt is at a mild nutritional risk. RD will f/u per protocol. Respectfully, Manisha Akhtar, Supervisor [employer] Antonio Everett MS, RD, LD Food and Nutritional Services [facility] cc: client file
--- NOTE | ~2016-09-14 | CO ---
Unit #: [id number] #: [id number] Patient: REBECCA CHIN [id number] [address] [place], [place] [address] [id number] MR#: [id number] NAME: REBECCA CHIN ROOM: 470 Age: 60 Sex: F Admission Date: 09/14/2016 : 1955 Attending Physician: Payton Iqbal M.D. Primary Care Physician: Cristian Adair D.O. Consultation Date: 09/18/2016 CONSULTATION REPORT CHIEF COMPLAINT Depression, severe anxiety. HISTORY OF PRESENT ILLNESS Ms. Rebecca Chin is a 60-year-old white female seen on 09/18/16 in room 470, bed 1. Patient reports that she is homeless, recently had surgery on her leg. The patient reports feels sad, depressed because of her health condition, recent surgery, as well as home condition. The patient reports that she does not have relatives, good support system. The patient reports that she was living in a half-way. She does not know where she will be living after this. The patient was pleasant, cooperative during interview. Denied any suicidal or homicidal ideation. Denied any psychotic symptoms at this time. The patient has history of multiple health conditions, diabetes. Currently taking medication for depression, which she reports is worse. PAST PSYCHIATRIC HISTORY Remarkable for history of depression, anxiety, history of outpatient treatment. No history of any suicide attempt or any inpatient treatment. MEDICATIONS The patient is currently on Cymbalta 30 mg daily, Levemir, Lovenox, Catapres, Colace, NovoLog, Ambien 5 mg p.o. q.h.s. p.r.n., Pepcid, Claritin, Desyrel 100 mg p.r.n. sleep, Neurontin 100 mg q.8 hours, Prozac 20 mg daily. MEDICAL HISTORY Remarkable for history of chronic kidney disease, hypertension, diabetes, proteinuria, anemia, hyperlipidemia, peripheral vascular disease with prior stent to the leg, COPD, cervical cancer, chronic pain syndrome. SURGERY Left BKA, toe amputation, hernia repair, hysterectomy. ALLERGIES Penicillin. Please refer to H and P for details. SOCIAL HISTORY The patient reports that she has poor support system. Was living in a half-way. No history of any abuse or substance abuse. REVIEW OF SYSTEMS A complete review of systems is remarkable for pain and anxiety. Unit #: [id number] #: [id number] Patient: REBECCA CHIN MENTAL STATUS EXAMINATION General appearance - Patient dressed casually lying comfortably in bed in a propped up position. Attention span, concentration - Fair. Speech - Regular rate, coherent. Oriented to time, place and person. Mood and affect - Sad, dysphoric. Thought process - Coherent. Thought content - The patient denied any thoughts of harming self or others or any psychotic symptoms. Recent and remote memory - Fair. Language - Able to name objects, repeat phrases. Fund of knowledge - Fair. Insight and judgment - Fair to slightly impaired. DIAGNOSIS 1. PSYCHIATRIC: Major depressive disorder, recurrent, severe, F33.2. 2. SECONDARY DIAGNOSIS: Deferred 3. MEDICAL DIAGNOSIS: Please refer to H and P. 4. STRESSOR: Psychosocial stressors. ASSESSMENT AND PLAN 1. Supportive psychotherapy and psychoeducation provided to the patient. 2. Educated about benefits and side effects of medication and course and prognosis of illness. 3. Advised to continue with the current combination of medications. Advised to increase Cymbalta to 60 mg daily, continue with Prozac and trazodone. If needed, consider further adjustment of medication. Please feel free to call with any questions, telephone number . Dictated by... Jagdeep Hobson/eliot TD: 09/19/2016 14:43 JOB #: [id number] CONSULTATION REPORT Page 1 of 1 X Omari Whitaker MD X CONSULTATION REPORT
--- NOTE | ~2016-09-14 | DS ---
Unit #: [id number] #: [id number] Patient: RAJ CHIN [id number] [address] [address] [id number] I MR#: [id number] NAME: RAJ CHIN ROOM: [facility] Age: 60 Sex: F Admission Date: 09/14/2016 : 1955 Discharge Date: 09/25/2016 Attending Physician: Payton Iqbal M.D. Primary Care Physician: Cristian Adair D.O. DISCHARGE SUMMARY ADMISSION DIAGNOSES 1. Right upper extremity cellulitis. 2. Right lower extremity cellulitis with wound dehiscence, status post transmetatarsal amputation. DISCHARGE DIAGNOSES 1. Methicillin-resistant Staphylococcus aureus sepsis. 2. Right hand septic flexor tenosynovitis involving all five digits. 3. Right thenar eminence abscess. 4. Right volar forearm and carpal tunnel abscesses. 5. Right foot gangrene. 6. Clostridium difficile colitis. 7. Acute kidney injury. SECONDARY DIAGNOSES 1. Diabetes mellitus. 2. Chronic anemia. 3. Chronic renal insufficiency. 4. Hypertension. 5. Peripheral vascular disease. 6. Chronic obstructive pulmonary disease. PROCEDURES THIS HOSPITALIZATION 1. Right below-knee amputation on September 16, 2016. 2. Multiple I and D's to the right hand including opening of all five flexor tendon sheaths as well as open carpal tunnel release and decompression of volar forearm abscess on September 16, 2016. CONSULTING SERVICES 1. Infectious disease, Dr. Escalante: Plan for discharge on Teflaro 600 mg IV q.12 and Flagyl 500 mg p.o. q.8 through October 14, 2016 with weekly CBC, BMP, CRP, and sed rate. Plan to discontinue PICC line on October 14, 2016 after last dose[address] 2. Dr. Ramo Lion with nephrology: Plan to change lisinopril to 5 mg p.o. daily at discharge. Renal function resolved back to normal at baseline. 3. Internal medicine hospitalist service. 4. Dr. Whitaker, psychiatry, for treatment of depression and anxiety. ADMISSION HISTORY Briefly, Ms. Chin is a 60-year-old female who has undergone a previous right transmetatarsal amputation. She returned to the outpatient orthopedic surgery clinic on September 14, 2016. She was noted to have Unit #: [id number] #: [id number] Patient: RAJ CHIN cellulitis in the right hand and impending wound failure and a right transmetatarsal amputation. She was admitted from the office to the hospital directly. HOSPITAL COURSE The patient was admitted for treatment of presumed cellulitis of the right upper extremity with IV antibiotics and care of the right lower extremity as well. She ultimately was determined to have MRSA bacteremia and developed sepsis syndrome. She was taken to the operating room on September 16, 2016, for treatment of her right upper extremity and right lower extremity. She underwent revision of her transmetatarsal amputation to a below-knee amputation. She additionally underwent surgical intervention on her right hand. For full details, please see the dictated operative note. Briefly, this was an extensive I and D of the right upper extremity including opening all five flexor tendon sheaths distally, as well as to the A1 pulleys. She had a large purulent fluid collection in the carpal tunnel and in the volar forearm. The thenar eminence was involved as well. During the hospitalization, the patient was noted to have an acute kidney injury superimposed on underlying renal insufficiency. Her creatinine had trended up to 2.9 on the day before surgery. At the day of discharge, it has trended back down to 1.1. During her hospitalization additionally she developed diarrhea which was concerning for Clostridium difficile colitis. She was ultimately found to have Clostridium difficile diarrhea and was treated with Flagyl. Infectious disease was consulted regarding management of the Clostridium difficile as well as bacteremia and sepsis syndrome. She ultimately grew out MRSA from blood cultures on September 15. Surgical cultures from September 16 demonstrated 3+ MRSA as well. She was followed by infectious disease. She was treated with Teflaro per infectious disease recommendations. At the current time, her sepsis has resolved. Her renal function has returned back to normal. She has been receiving occupational therapy for treatment of her right hand. She was having improving function but still remains quite limited in this regard. Her cast has been removed and she is receiving dressing changes to her right below-knee amputation wound. At the current time, she is medically stable for transfer to rehab facility. DISCHARGE INSTRUCTIONS She should have occupational therapy daily to the right hand. She should receive physical therapy daily. She may be up at the bedside and up out of bed to a chair to participate in physical therapy as tolerated. She should have daily dressing changes to the right lower extremity as well. DISCHARGE MEDICATIONS 1. Combivent inhaler p.r.n. 2. Pulmicort 0.5 mg neb twice daily. 3. Formoterol 20 mcg/2 mL nebulizer twice daily. 4. Magnesium 400 mg p.o. b.i.d. 5. Xarelto 10 mg p.o. daily. 6. Neurontin 100 mg p.o. q.8 hours. 7. Cymbalta 60 mg p.o. daily. 8. Prozac 20 mg p.o. daily. 9. Trazodone 100 mg p.o. nightly. 10. Acidophilus tablets daily through October 19. Unit #: [id number] #: [id number] Patient: RAJ CHIN 11. Claritin 10 mg p.o. daily. 12. Diltiazem 120 mg p.o. daily. 13. Colace 100 mg as needed b.i.d. Hold for diarrhea. 14. Clonidine 0.3 mg p.o. t.i.d. 15. Levemir 28 units nightly. 16. NovoLog sliding scale q.a.c. and at bedtime. 17. NovoLog 2 units subcutaneous t.i.d. with meals. 18. Ferrous gluconate 325 mg p.o. b.i.d. 19. Pepcid 20 mg p.o. daily. 20. Percocet 5/325 one tab p.o. q.4 hours p.r.n. pain. 21. Vitamin D supplement 50,000 units p.o. weekly. 22. Teflaro 600 mg IV q.12 hours through October 14, 2016. 23. Metronidazole 500 mg p.o. q.8 hours through October 14, 2016. 24. Lisinopril 5 mg p.o. daily. FOLLOWUP 1. Followup with Dr. Lion in four to six weeks post discharge, office number [phone], in nephrology. 2. Followup with Dr. Iqbal one week post discharge. Dictated by... Red Severino M.D. [facility]/jeny TD: 09/25/2016 14:13 JOB #: [id number] DISCHARGE SUMMARY Page 1 of 1 X Red Severino MD DISCHARGE SUMMARY
[~2016-09-14 16:11] MED LIST changes: +AZOR 10/20 MG T1 TAB PO; +PRILOSEC10 M1 PO; +VANCOMYCIN HCL1 GM IV
[2016-09-14 18:42] LABS: ALBUMIN SERUM 1.6 g/dL (3.5-5.0); BILIRUBIN,TOTAL 0.4 mg/dL (0.2-2.0); BUN/CREATININE RATIO 28.92; CALCIUM SERUM 8.3 mg/dL (8.4-10.2); CREATININE SERUM 2.8 mg/dL (0.6-1.4); GLOM FILT RATE Estimated 17.9 mL/min (>60); POTASSIUM 4.8 mmol/L (3.5-5.1); PROTEIN TOTAL SERUM 7.3 g/dL (6.0-8.3)
[2016-09-14] MEDS ORDERED: CARDIZEM SR PO (20:24)
[2016-09-14] MEDS ORDERED: CYMBALTA30 M1 PO (20:26)
[2016-09-14] MEDS ORDERED: IPRATR-ALBUTEROL3 ML INH (20:28)
[2016-09-14] MEDS ORDERED: FERROUS GL324 ( 36 ) PO (20:30)
[2016-09-14] MEDS ORDERED: LEVEMIR100 UNITS/ SUBQ (20:32)
[2016-09-14] MEDS ORDERED: OLMESARTAN MEDO20 MG PO (20:34)
[2016-09-14] MEDS ORDERED: XARELTO10 MG PO (20:36)
[2016-09-14 21:12] LABS: BASOPHIL# 0.1 X10e3 (0-0.3); BASOPHIL% 0.2 % (0-2.5); EOSINOPHIL% 0.1 % (0.0-7.0); HEMATOCRIT 26.4 % (35.0-45.0); HEMOGLOBIN 8.3 gm/dL (12.0-16.0); LYMPHOCYTE# 0.7 X10e3 (1.0-3.5); LYMPHOCYTE% 2.1 % (17.0-45.0); MEAN CELL VOLUME 82.9 FL (83-96); MEAN CORPUSCULAR HGB CONC 31.4 g/dL (30-36); MEAN PLATELET VOLUME 6.5 FL (6.5-11.5); MONOCYTE# 1.3 X10e3 (0-1.0); NEUTROPHIL# 31.8 X10e3 (1.5-7.1); NEUTROPHIL% 93.6 % (40-75); PLATELET COUNT 370 X10e3 (140-420); RED BLOOD COUNT 3.18 X10e (3.90-5.30); RED CELL DISTRIBUTION WIDTH 17.4 % (11.0-15.5)
[2016-09-14 21:13] LABS: DIFF IND YES
[2016-09-14 21:33] LABS: ANISOCYTOSIS SL; PLATELET ESTIMATE NORMAL (NORMAL)
[2016-09-15 06:53] LABS: ALBUMIN SERUM 1.4 g/dL (3.5-5.0); BUN/CREATININE RATIO 29.31; CREATININE SERUM 2.9 mg/dL (0.6-1.4); GLOM FILT RATE Estimated 17.1 mL/min (>60); POTASSIUM 3.9 mmol/L (3.5-5.1); PROTEIN TOTAL SERUM 6.5 g/dL (6.0-8.3)
[2016-09-15 07:23] LABS: BASOPHIL# 0.3 X10e3 (0-0.3); BASOPHIL% 0.9 % (0-2.5); EOSINOPHIL% 0.1 % (0.0-7.0); HEMATOCRIT 30.3 % (35.0-45.0); HEMOGLOBIN 9.5 gm/dL (12.0-16.0); LYMPHOCYTE# 0.2 X10e3 (1.0-3.5); LYMPHOCYTE% 0.5 % (17.0-45.0); MEAN CELL VOLUME 83.4 FL (83-96); MEAN CORPUSCULAR HEMOGLOBIN 26.3 PG (28-34); MEAN CORPUSCULAR HGB CONC 31.5 g/dL (30-36); MONOCYTE# 0.2 X10e3 (0-1.0); MONOCYTE% 0.6 % (3.0-12.0); NEUTROPHIL# 30.7 X10e3 (1.5-7.1); NEUTROPHIL% 97.9 % (40-75); PLATELET COUNT 392 X10e3 (140-420); RED BLOOD COUNT 3.63 X10e (3.90-5.30); RED CELL DISTRIBUTION WIDTH 17.1 % (11.0-15.5); WHITE BLOOD COUNT 31.3 X10e3 (4.0-10.5)
[2016-09-15 07:26] LABS: DIFF IND NO
[2016-09-15 12:13] LABS: INR 1.1; PROTHROMBIN TIME (PATIENT) 11.3 SECONDS (9.6-11.5)
[2016-09-15 13:04] LABS: HEMATOCRIT 27.2 % (35.0-45.0); HEMOGLOBIN 8.6 gm/dL (12.0-16.0); MEAN CELL VOLUME 82.5 FL (83-96); MEAN CORPUSCULAR HEMOGLOBIN 26.1 PG (28-34); MEAN CORPUSCULAR HGB CONC 31.7 g/dL (30-36); MEAN PLATELET VOLUME 6.4 FL (6.5-11.5); RED BLOOD COUNT 3.3 X10e (3.90-5.30); RED CELL DISTRIBUTION WIDTH 17.4 % (11.0-15.5); WHITE BLOOD COUNT 35.8 X10e3 (4.0-10.5)
[2016-09-15 15:44] LABS: URINE SOURCE CLEAN CATCH
[2016-09-15 16:02] LABS: URINE APPEARANCE TURBID; URINE BILIRUBIN NEG (NEG); URINE BLOOD 3+ (NEG); URINE COLOR YELLOW; URINE GLUCOSE 250 MG/DL (NEG); URINE KETONE NEG (NEG); URINE LEUKOCYTE ESTERASE 2+ (NEG); URINE NITRATE NEG (NEG); URINE PROTEIN 3+ (NEG); URINE UROBILINOGEN 0.2 MG/DL (NEG)
[2016-09-15 16:06] LABS: CULTURE INDICATED? YES; U HYALINE CASTS AUWI 0-2 /[LPF]; URBCS1 AUWI 50-100 /[HPF] (0-2); URINE BACTERIA AUWI 4+ (NEGATIVE); URINE SQUAMOUS EPITHELIAL CELL FEW /[HPF]; UWBCS1 AUWI INNUM (0-5)
[2016-09-15 16:18] LABS: CREATININE,RANDOM URINE 88 mg/dL; SODIUM URINE RANDOM 11 mmol/L
[2016-09-16 04:35] LABS: HEMATOCRIT 26.7 % (35.0-45.0); HEMOGLOBIN 8.4 gm/dL (12.0-16.0); MEAN CELL VOLUME 83.3 FL (83-96); MEAN CORPUSCULAR HEMOGLOBIN 26.3 PG (28-34); MEAN CORPUSCULAR HGB CONC 31.6 g/dL (30-36); MEAN PLATELET VOLUME 6.6 FL (6.5-11.5); RED BLOOD COUNT 3.21 X10e (3.90-5.30); RED CELL DISTRIBUTION WIDTH 17.5 % (11.0-15.5); WHITE BLOOD COUNT 27.9 X10e3 (4.0-10.5)
[2016-09-16 06:14] LABS: ALBUMIN SERUM 1.2 g/dL (3.5-5.0); BILIRUBIN,TOTAL 0.5 mg/dL (0.2-2.0); BUN/CREATININE RATIO 41.3; CALCIUM SERUM 7.4 mg/dL (8.4-10.2); CREATININE SERUM 2.3 mg/dL (0.6-1.4); GLOM FILT RATE Estimated 22.7 mL/min (>60); MAGNESIUM 2.9 mg/dL (1.6-3.0); PROTEIN TOTAL SERUM 5.7 g/dL (6.0-8.3)
[2016-09-17 04:01] LABS: BASOPHIL% 0.1 % (0-2.5); EOSINOPHIL% 0.1 % (0.0-7.0); HEMATOCRIT 27.6 % (35.0-45.0); HEMOGLOBIN 8.4 gm/dL (12.0-16.0); LYMPHOCYTE# 0.7 X10e3 (1.0-3.5); LYMPHOCYTE% 2.1 % (17.0-45.0); MEAN CELL VOLUME 84.9 FL (83-96); MEAN CORPUSCULAR HEMOGLOBIN 25.9 PG (28-34); MEAN CORPUSCULAR HGB CONC 30.5 g/dL (30-36); MEAN PLATELET VOLUME 6.8 FL (6.5-11.5); MONOCYTE# 0.9 X10e3 (0-1.0); MONOCYTE% 2.8 % (3.0-12.0); NEUTROPHIL# 32.4 X10e3 (1.5-7.1); NEUTROPHIL% 94.9 % (40-75); PLATELET COUNT 284 X10e3 (140-420); RED BLOOD COUNT 3.25 X10e (3.90-5.30); RED CELL DISTRIBUTION WIDTH 17.4 % (11.0-15.5); WHITE BLOOD COUNT 34.1 X10e3 (4.0-10.5)
[2016-09-17 04:02] LABS: DIFF IND NO
[2016-09-17 04:18] LABS: ALBUMIN SERUM 1.4 g/dL (3.5-5.0); BILIRUBIN,TOTAL 0.4 mg/dL (0.2-2.0); BUN/CREATININE RATIO 49.28; CALCIUM SERUM 7.4 mg/dL (8.4-10.2); CREATININE SERUM 1.4 mg/dL (0.6-1.4); GLOM FILT RATE Estimated 41.3 mL/min (>60); MAGNESIUM 2.4 mg/dL (1.6-3.0); POTASSIUM 4.5 mmol/L (3.5-5.1); PROTEIN TOTAL SERUM 6.4 g/dL (6.0-8.3)
[2016-09-18 06:08] LABS: BASOPHIL# 0.1 X10e3 (0-0.3); BASOPHIL% 0.2 % (0-2.5); EOSINOPHIL# 0.2 X10e3 (0-0.7); EOSINOPHIL% 0.6 % (0.0-7.0); HEMATOCRIT 26.8 % (35.0-45.0); HEMOGLOBIN 8.2 gm/dL (12.0-16.0); LYMPHOCYTE% 3.4 % (17.0-45.0); MEAN CELL VOLUME 83.8 FL (83-96); MEAN CORPUSCULAR HEMOGLOBIN 25.6 PG (28-34); MEAN CORPUSCULAR HGB CONC 30.6 g/dL (30-36); MEAN PLATELET VOLUME 6.6 FL (6.5-11.5); MONOCYTE% 3.1 % (3.0-12.0); NEUTROPHIL% 92.7 % (40-75); PLATELET COUNT 314 X10e3 (140-420); RED BLOOD COUNT 3.19 X10e (3.90-5.30); RED CELL DISTRIBUTION WIDTH 17.3 % (11.0-15.5); WHITE BLOOD COUNT 31.3 X10e3 (4.0-10.5)
[2016-09-18 06:14] LABS: BUN/CREATININE RATIO 48.33; CALCIUM SERUM 7.5 mg/dL (8.4-10.2); CREATININE SERUM 1.2 mg/dL (0.6-1.4); GLOM FILT RATE Estimated 49.8 mL/min (>60); POTASSIUM 4.5 mmol/L (3.5-5.1)
[2016-09-18 06:15] LABS: DIFF IND YES
[2016-09-18 08:03] LABS: ANISOCYTOSIS SL; PLATELET ESTIMATE NORMAL (NORMAL)
[2016-09-18 08:05] LABS: HYPOCHROMIA SL
[2016-09-19 04:27] LABS: HEMATOCRIT 26.8 % (35.0-45.0); HEMOGLOBIN 8.3 gm/dL (12.0-16.0); MEAN CELL VOLUME 83.5 FL (83-96); MEAN CORPUSCULAR HEMOGLOBIN 25.9 PG (28-34); MEAN PLATELET VOLUME 6.8 FL (6.5-11.5); RED BLOOD COUNT 3.21 X10e (3.90-5.30); RED CELL DISTRIBUTION WIDTH 17.6 % (11.0-15.5); WHITE BLOOD COUNT 41.2 X10e3 (4.0-10.5)
[2016-09-19 04:40] LABS: BUN/CREATININE RATIO 35.62; CALCIUM SERUM 7.6 mg/dL (8.4-10.2); CREATININE SERUM 1.6 mg/dL (0.6-1.4); GLOM FILT RATE Estimated 35.2 mL/min (>60); MAGNESIUM 2.4 mg/dL (1.6-3.0); POTASSIUM 4.6 mmol/L (3.5-5.1)
[2016-09-20 03:35] LABS: HEMATOCRIT 25.5 % (35.0-45.0); HEMOGLOBIN 7.8 gm/dL (12.0-16.0); MEAN CELL VOLUME 84.1 FL (83-96); MEAN CORPUSCULAR HEMOGLOBIN 25.8 PG (28-34); MEAN CORPUSCULAR HGB CONC 30.7 g/dL (30-36); RED BLOOD COUNT 3.03 X10e (3.90-5.30); RED CELL DISTRIBUTION WIDTH 17.2 % (11.0-15.5); WHITE BLOOD COUNT 31.4 X10e3 (4.0-10.5)
[2016-09-20 03:50] LABS: ALBUMIN SERUM 1.2 g/dL (3.5-5.0); BILIRUBIN,TOTAL 0.4 mg/dL (0.2-2.0); BUN/CREATININE RATIO 39.33; CALCIUM SERUM 7.6 mg/dL (8.4-10.2); CREATININE SERUM 1.5 mg/dL (0.6-1.4); MAGNESIUM 2.3 mg/dL (1.6-3.0); PHOSPHOROUS 4.2 mg/dL (2.5-4.6); POTASSIUM 3.9 mmol/L (3.5-5.1); PROTEIN TOTAL SERUM 5.9 g/dL (6.0-8.3)
[2016-09-21 04:26] LABS: HEMATOCRIT 26.6 % (35.0-45.0); HEMOGLOBIN 8.4 gm/dL (12.0-16.0); MEAN CELL VOLUME 83.3 FL (83-96); MEAN CORPUSCULAR HEMOGLOBIN 26.1 PG (28-34); MEAN CORPUSCULAR HGB CONC 31.4 g/dL (30-36); MEAN PLATELET VOLUME 6.9 FL (6.5-11.5); RED BLOOD COUNT 3.2 X10e (3.90-5.30); RED CELL DISTRIBUTION WIDTH 17.3 % (11.0-15.5); WHITE BLOOD COUNT 24.8 X10e3 (4.0-10.5)
[2016-09-21 04:39] LABS: BUN/CREATININE RATIO 36.42; CALCIUM SERUM 7.8 mg/dL (8.4-10.2); CREATININE SERUM 1.4 mg/dL (0.6-1.4); GLOM FILT RATE Estimated 41.3 mL/min (>60); MAGNESIUM 2.2 mg/dL (1.6-3.0); PHOSPHOROUS 3.7 mg/dL (2.5-4.6); POTASSIUM 3.9 mmol/L (3.5-5.1)
[2016-09-22 09:10] LABS: BASOPHIL% 0.1 % (0-2.5); DIFF IND YES; EOSINOPHIL# 0.1 X10e3 (0-0.7); EOSINOPHIL% 0.4 % (0.0-7.0); HEMATOCRIT 27.6 % (35.0-45.0); HEMOGLOBIN 8.7 gm/dL (12.0-16.0); LYMPHOCYTE# 0.8 X10e3 (1.0-3.5); LYMPHOCYTE% 2.9 % (17.0-45.0); MEAN CELL VOLUME 83.7 FL (83-96); MEAN CORPUSCULAR HEMOGLOBIN 26.2 PG (28-34); MEAN CORPUSCULAR HGB CONC 31.3 g/dL (30-36); MEAN PLATELET VOLUME 6.8 FL (6.5-11.5); MONOCYTE# 0.8 X10e3 (0-1.0); MONOCYTE% 2.7 % (3.0-12.0); NEUTROPHIL# 26.6 X10e3 (1.5-7.1); NEUTROPHIL% 93.9 % (40-75); PLATELET COUNT 301 X10e3 (140-420); RED CELL DISTRIBUTION WIDTH 17.4 % (11.0-15.5); WHITE BLOOD COUNT 28.3 X10e3 (4.0-10.5)
[2016-09-22 09:38] LABS: BUN/CREATININE RATIO 37.5; CALCIUM SERUM 7.4 mg/dL (8.4-10.2); CREATININE SERUM 1.2 mg/dL (0.6-1.4); GLOM FILT RATE Estimated 49.8 mL/min (>60); POTASSIUM 3.7 mmol/L (3.5-5.1)
[2016-09-22 09:44] LABS: ANISOCYTOSIS SL; PLATELET ESTIMATE NORMAL (NORMAL)
[2016-09-22 09:50] LABS: PHOSPHOROUS 4.3 mg/dL (2.5-4.6)
[2016-09-23 06:58] LABS: BUN/CREATININE RATIO 35.33; CALCIUM SERUM 7.6 mg/dL (8.4-10.2); CREATININE SERUM 1.5 mg/dL (0.6-1.4); MAGNESIUM 2.1 mg/dL (1.6-3.0); POTASSIUM 3.3 mmol/L (3.5-5.1)
[2016-09-24 03:03] LABS: BASOPHIL% 0.2 % (0-2.5); EOSINOPHIL# 0.2 X10e3 (0-0.7); EOSINOPHIL% 1.1 % (0.0-7.0); HEMATOCRIT 26.2 % (35.0-45.0); HEMOGLOBIN 8.2 gm/dL (12.0-16.0); LYMPHOCYTE# 1.1 X10e3 (1.0-3.5); LYMPHOCYTE% 5.3 % (17.0-45.0); MEAN CELL VOLUME 83.4 FL (83-96); MEAN CORPUSCULAR HGB CONC 31.1 g/dL (30-36); MEAN PLATELET VOLUME 6.8 FL (6.5-11.5); MONOCYTE# 0.8 X10e3 (0-1.0); MONOCYTE% 3.7 % (3.0-12.0); NEUTROPHIL# 18.3 X10e3 (1.5-7.1); NEUTROPHIL% 89.7 % (40-75); PLATELET COUNT 261 X10e3 (140-420); RED BLOOD COUNT 3.14 X10e (3.90-5.30); WHITE BLOOD COUNT 20.4 X10e3 (4.0-10.5)
[2016-09-24 03:04] LABS: DIFF IND NO
[2016-09-24 03:20] LABS: BUN/CREATININE RATIO 36.42; CALCIUM SERUM 7.3 mg/dL (8.4-10.2); CREATININE SERUM 1.4 mg/dL (0.6-1.4); GLOM FILT RATE Estimated 41.3 mL/min (>60); MAGNESIUM 2.2 mg/dL (1.6-3.0); PHOSPHOROUS 3.9 mg/dL (2.5-4.6); POTASSIUM 3.9 mmol/L (3.5-5.1)
[2016-09-25 09:05] LABS: HEMATOCRIT 27.3 % (35.0-45.0); HEMOGLOBIN 8.5 gm/dL (12.0-16.0); MEAN CELL VOLUME 84.3 FL (83-96); MEAN CORPUSCULAR HEMOGLOBIN 26.2 PG (28-34); MEAN PLATELET VOLUME 7.1 FL (6.5-11.5); RED BLOOD COUNT 3.24 X10e (3.90-5.30); RED CELL DISTRIBUTION WIDTH 17.6 % (11.0-15.5); WHITE BLOOD COUNT 14.3 X10e3 (4.0-10.5)
[2016-09-25 09:46] LABS: BUN/CREATININE RATIO 36.36; CALCIUM SERUM 7.2 mg/dL (8.4-10.2); CREATININE SERUM 1.1 mg/dL (0.6-1.4); GLOM FILT RATE Estimated 55.3 mL/min (>60); MAGNESIUM 2.2 mg/dL (1.6-3.0); POTASSIUM 4.4 mmol/L (3.5-5.1)
== END 2016-09-26 00:12 | DRG 853 ==
LOC: C4C 16:11
PROVIDERS: Family Medicine; Internal Medicine; Internal Medicine Nephrology; Nurse Practitioner; Nurse Practitioner Family; Orthopaedic Surgery
PROC: 05H633Z Insertion of Infusion Device into Left Subclavian Vein, Percutaneous Approach (ICD-10-PCS; 2016-09-14)
PROC: B547ZZA Ultrasonography of Left Subclavian Vein, Guidance (ICD-10-PCS; 2016-09-14)
PROC: 0J9G0ZZ Drainage of Right Lower Arm Subcutaneous Tissue and Fascia, Open Approach (ICD-10-PCS; 2016-09-16)
PROC: 0L970ZZ Drainage of Right Hand Tendon, Open Approach (ICD-10-PCS; 2016-09-16)
PROC: 2W3QX2Z Immobilization of Right Lower Leg using Cast (ICD-10-PCS; 2016-09-16)
PROC: 3E0U33Z Introduction of Anti-inflammatory into Joints, Percutaneous Approach (ICD-10-PCS; 2016-09-16)
PROC: 3E0U3BZ Introduction of Anesthetic Agent into Joints, Percutaneous Approach (ICD-10-PCS; 2016-09-16)
PROC: 05H533Z Insertion of Infusion Device into Right Subclavian Vein, Percutaneous Approach (ICD-10-PCS; 2016-09-16)
PROC: B546ZZA Ultrasonography of Right Subclavian Vein, Guidance (ICD-10-PCS; 2016-09-16)
PROC: 0Y6F0ZZ Detachment at Right Knee Region, Open Approach (ICD-10-PCS; principal; 2016-09-16 12:00)
PROC: 01N50ZZ Release Median Nerve, Open Approach (ICD-10-PCS; 2016-09-16 12:00)
PROC: B24BYZZ Ultrasonography of Heart with Aorta using Other Contrast (ICD-10-PCS; 2016-09-18)
DX: A41.02 Sepsis due to Methicillin resistant Staphylococcus aureus (principal); E43 Unspecified severe protein-calorie malnutrition; L89.152 Pressure ulcer of sacral region, stage 2; F33.2 Major depressive disorder, recurrent severe without psychotic features; N17.9 Acute kidney failure, unspecified; A04.7 Enterocolitis due to Clostridium difficile; E11.52 Type 2 diabetes mellitus with diabetic peripheral angiopathy with gangrene; N18.3 Chronic kidney disease, stage 3 (moderate); L03.113 Cellulitis of right upper limb; E87.1 Hypo-osmolality and hyponatremia; L02.413 Cutaneous abscess of right upper limb; N39.0 Urinary tract infection, site not specified; T81.30XA Disruption of wound, unspecified, initial encounter; E11.22 Type 2 diabetes mellitus with diabetic chronic kidney disease; E11.40 Type 2 diabetes mellitus with diabetic neuropathy, unspecified; Z79.4 Long term (current) use of insulin; R65.20 Severe sepsis without septic shock; I12.9 Hypertensive chronic kidney disease with stage 1 through stage 4 chronic kidney disease, or unspecified chronic kidney disease; D64.89 Other specified anemias; E78.5 Hyperlipidemia, unspecified; I73.9 Peripheral vascular disease, unspecified; J44.9 Chronic obstructive pulmonary disease, unspecified; G89.4 Chronic pain syndrome; Z85.41 Personal history of malignant neoplasm of cervix uteri; Z90.710 Acquired absence of both cervix and uterus; Z87.891 Personal history of nicotine dependence; Z88.0 Allergy status to penicillin; Z89.431 Acquired absence of right foot; M65.841 Other synovitis and tenosynovitis, right hand; M75.52 Bursitis of left shoulder; B96.1 Klebsiella pneumoniae [K. pneumoniae] as the cause of diseases classified elsewhere; F41.9 Anxiety disorder, unspecified
CPT/HCPCS: 73221; 80048; 80053; 80202; 81003; 82550; 82570; 82947; 83605; 83735; 84100; 84300; 84550; 85025; 85027; 85610; 86850; 86900; 86901; 86923; 87040; 87070; 87075; 87077; 87086; 87088; 87186; 87205; 87493; 88307; 89190; 93306; 93971; 94640; 94760; 97110; 97167; 97530; 97535; G8987-GO; G8988-GO; J0692; J0712; J1030; J1170; J1650; J1815; J2250; J2270; J2550; J3010; J3370; J3480

== ENCOUNTER 2016-10-12 17:48 | Inpatient (IN) | payer MEDICARE, OTHER ==
--- NOTE | ~2016-10-12 | CO ---
Unit #: [id number] #: [id number] Patient: RAJ VALVERDE [id number] [address] [place], [place] [address] [id number] Etienne MR#: [id number] NAME: RAJ VALVERDE ROOM: 46 Age: 60 Sex: F Admission Date: 10/12/2016 : 1955 Attending Physician: Payton Iqbal M.D. Primary Care Physician: Cristian Adair D.O. Requesting Physician: Payton Iqbal M.D. Consultation Date: 10/15/2016 CONSULTATION REPORT REASON FOR CONSULTATION Right hand abscess. HISTORY OF PRESENT ILLNESS This is a 60-year-old white female with multiple medical problems including insulin-dependent diabetes, diabetic neuropathy, multiple foot surgeries, left BKA, and recent right BKA about three and a half weeks ago, who was admitted with dehiscence of wound and failure to heal. She was admitted for revision and underwent AKA successfully. She also had a right hand abscess for which she underwent I and D. Cultures are pending. She is on vancomycin and ceftaroline. I was asked to see her for antibiotic recommendations. Prior to right hand abscess drainage she had undergone carpal tunnel release and incision and drainage of septic flexor tenosynovitis of the thumb, index finger, middle finger, ring finger, and small finger. Her finger had healed, but she had fluctuation in her palmar wound for which abscess was suspected, and she underwent I and D. She is currently stable. She has no fever or chills and is tolerating antibiotics well. All her cultures are pending. PAST MEDICAL HISTORY 1. Insulin-dependent diabetes. 2. Chronic kidney disease. 3. Hypertension. 4. Chronic anemia. 5. Hyperlipidemia. 6. Peripheral vascular disease requiring stents. 7. Left BKA. 8. Chronic obstructive pulmonary disease. 9. Chronic tobacco abuse. 10. Cervical cancer. 11. Chronic pain syndrome. 12. Recent right BKA and carpal tunnel release complicated by wound dehiscence and hand abscess requiring another surgery in the form of right AKA and I and D of the right hand abscess. 13. Hysterectomy. 14. Herniorrhaphy. MEDICATIONS Current medications include vancomycin and ceftaroline. Other medications include NovoLog, Levemir, Prozac, Cymbalta, Percocet, Pepcid, Dulera, Unit #: [id number] #: [id number] Patient: ABRAM,RAJ Lipitor, Combivent, Pulmicort, ferrous sulfate, triamcinolone, Desyrel, vitamin D, Catapres, magnesium oxide, Neurontin, (1) , Colace, Os-Adelfo, Zestril, Benicar, Cardizem, and Claritin. DRUG ALLERGIES Adhesives, penicillin, daptomycin, and latex. She is tolerating Teflaro very well without any signs of allergic reaction. SOCIAL HISTORY She is a previous smoker but does not smoke anymore. She currently lives in a rehabilitation hospital. No history of alcohol or drug use. FAMILY HISTORY Unknown. REVIEW OF SYSTEMS Right hand pain and right AKA site pain. No fever or chills. She has no cough, abdominal pain, dysuria, nausea, vomiting, diarrhea, headache, or mental status changes. PHYSICAL EXAMINATION GENERAL: An obese, middle-aged white female who is awake, alert, and in no acute distress. She looks chronically ill. VITAL SIGNS: Temperature 98.3. No fevers during this hospitalization. Pulse is 80, respirations 18, and blood pressure 150/78. HEENT: She looks pale. NECK: Supple. No JVD. EXTREMITIES: Left BKA stump has healed. Right AKA stump is in dressing. Wound was not examined. Her right hand is in a surgical dressing, so the wound was not examined as well. LUNGS: Clear to percussion and auscultation. CARDIOVASCULAR: Heart sounds are normal. No murmurs. ABDOMEN: Grossly obese, soft, and nontender. No rebound or guarding. Bowel sounds are normal. NEUROLOGIC: Nonfocal. DIAGNOSTIC STUDIES LABORATORY: Cultures of the blood and wound from the OR are pending at this time. Cultures from the BKA stump were also negative. Sodium of 136, potassium 4.4, chloride 110, CO2 of 24, BUN 31, and creatinine is 1.4. White count is 7.5, hemoglobin 6.9, hematocrit 21.7, and platelets 188,000. Urinalysis shows pyuria, but patient has a catheter, so this is to be disregarded since patient has no symptom of urinary tract infection. Hemoglobin A1c 7.4. IMAGING: Chest x-ray shows left PICC line in mid SVC, low lung volumes, and no acute cardiopulmonary findings. Operative note was reviewed. IMPRESSION The main issue appears to be right hand abscess in the palmar space for which patient has undergone incision and drainage. Cultures are pending. Right gstvu-scs-iptu amputation stump was not infected, and that has been revised to hqepr-yfi-mqiu amputation. RECOMMENDATIONS Pending cultures, would continue Teflaro. Will discontinue vancomycin Unit #: [id number] #: [id number] Patient: RAJ VALVERDE since this will be redundant. Final recommendation regarding antibiotics will be given after cultures are finalized. Further recommendations will follow. Dictated by... Jagdeep Price/meg TD: 10/15/2016 21:42 JOB #: [id number] CONSULTATION REPORT Page 1 of 1 X Abimael Escalante MD X CONSULTATION REPORT
--- NOTE | ~2016-10-12 | CO ---
Unit #: [id number] #: [id number] Patient: RAJ VALVERDE [id number] [address] [address] [id number] I MR#: [id number] NAME: RAJ VALVERDE ROOM: 46 Age: 60 Sex: F Admission Date: 10/12/2016 : 1955 Attending Physician: Payton Iqbal M.D. Primary Care Physician: Cristian Adair D.O. Consultation Date: 10/12/2016 CONSULTATION REPORT CHIEF COMPLAINT Cellulitis in the right hand and right wexxv-jlm-tfce amputation stump got infected and she is getting admitted for surgery. REASON FOR CONSULTATION Diabetes mellitus. HISTORY OF PRESENT ILLNESS The patient is a 60-year-old lady with a past medical history of diabetes mellitus for almost 20 years, history of diabetic neuropathy, history of peripheral vascular disease with right leg gdyco-qem-whsf amputation and left wfjna-kdq-jvrd amputation. She was admitted electively for further wound debridement of the right hand and also for possible right wxrtv-law-rbdt amputation. During her last hospitalization her hospital course was complicated with c-diff, MRSA bacteremia and MRSA sepsis at that time. She ended up having right djqxf-pgk-zihc amputation. For the diabetes she currently is in a alf. She does not recollect what is the dosage of insulin she takes. From the last discharge summary from 09/25/2016 she was on Levemir 28 units. Will resume her Levemir. I see that she does not have any (1) to be diabetic diet. PAST MEDICAL HISTORY 1. History of diabetes. 2. Chronic kidney disease stage 3. 3. Hypertension. 4. Anemia of chronic disease. 5. Hyperlipidemia. 6. Peripheral vascular disease with stent in her leg. 7. Chronic obstructive pulmonary disease. 8. History of tobacco abuse. 9. History of cervical cancer. 10. Chronic pain syndrome. 11. Left bilateral qgucs-jrr-dhrj amputation surgery. PAST SURGICAL HISTORY 1. Bilateral wdhmz-bzb-ljoj amputation. 2. Multiple foot surgeries, bilateral. 3. Herniorrhaphy. 4. Hysterectomy. Unit #: [id number] #: [id number] Patient: RAJ VALVERDE SOCIAL HISTORY Currently she lives in a alf. Denies any tobacco, alcohol or illicit drug use. Per records she is a former smoker. FAMILY HISTORY She is a foster child and she does not recollect. ALLERGIES Adhesives, penicillin, daptomycin, Cubicin, latex. HOME MEDICATIONS Currently she does not recollect the alf medications. We are trying to get a list from them. REVIEW OF SYSTEMS Complete review of systems was done and negative except for that mentioned in the history of present illness. PHYSICAL EXAMINATION GENERAL: The patient is alert and oriented times three, lying in the bed in no acute distress. VITALS: Temperature 98.2, pulse 94, respiratory rate 16, blood pressure 180/85. HEENT: Normocephalic, atraumatic. No icterus. Pupils equally round and reactive to light and accommodation. Extraocular muscles intact. NECK: Supple. No jugular venous distension. CHEST: Bilateral equal entry. Clear to auscultation. HEART: S1 and S2. Regular rate and rhythm. ABDOMEN: Soft, nontender. EXTREMITIES: Both legs bilateral hemsw-dau-ktbz amputations. Right leg stump is in a dressing. Right wrist is in a dressing. DIAGNOSTIC STUDIES LABORATORY: We do not have any diagnostics at this point. ASSESSMENT/PLAN 1. Diabetes mellitus type 2, poorly controlled. Will resume Levemir 28 units. Will keep her on Accu-Cheks morning and evening. Medium level insulin sliding scale. She complains with diet, will also request diabetic educationist come talk to her. 2. Hypertension. Will try to resume her home medications and will titrate her home medications. She was on Cardizem and beta jaimee. Will resume them. 3. History of MRSA skin and soft tissue infections, status post right xpkuc-wza-lvlt amputation. Continue with isolation. 4. History of c-diff colitis. Continue with isolation. 5. DVT precautions. I would like to thank Dr. Iqbal for giving us the opportunity to take part in the care of this pleasant patient. Will follow the patient with you. Dictated by... Anson Perkins M.D. RODNEY/mason Unit #: [id number] #: [id number] Patient: RAJ VALVERDE TD: 10/13/2016 09:24 JOB #: [id number] CONSULTATION REPORT Page 1 of 1 X X CONSULTATION REPORT
--- NOTE | ~2016-10-12 | DS ---
Unit #: [id number] #: [id number] Patient: RAJ VALVERDE [id number] [address] [place], [place] [address] [id number] I MR#: [id number] NAME: RAJ VALVERDE ROOM: 46 Age: 60 Sex: F Admission Date: 10/12/2016 : 1955 Discharge Date: 10/19/2016 Attending Physician: Payton Iqbal M.D. Primary Care Physician: Cristian Adair D.O. DISCHARGE SUMMARY CHIEF COMPLAINT Right hand infection and right failed nlhac-vlo-zygj amputation. HISTORY OF PRESENT ILLNESS The patient is a 60-year-old female with insulin dependent diabetes, diabetic peripheral neuropathy and multiple right foot surgeries, culminating in a right mthwr-plj-fapi amputation 3.5 weeks prior to admission. The patient now has dehiscence of her idvig-qxn-qfhx amputation wound and is admitted for ahbui-tdl-znqp amputation. Additionally, the patient also underwent right hand carpal tunnel release and incision and drainage of septic flexor tenosynovitis of the thumb and all fingers of the right hand. Her fingers have healed, but her palmar incision still shows some fluctuans. She was, therefore, admitted for repeat incision and drainage of the right hand. HOSPITAL COURSE The patient was taken to the operating room on the day of admission, where she underwent right ikwmz-ndh-vnmg amputation and repeat incision and drainage of her right palmar hand wound. Purulence was obtained from the hand and cultures grew no bacteria. Cultures from the tibial intramedullary canal also grew no bacteria. The patient was seen by occupational therapy and physical therapy on a daily basis. She was maintained on vancomycin postoperatively, pending return of culture results. She was switched to Zyvox orally on 10/19/2016. Her hematocrit dropped and she received two units of packed red blood cells on 10/15/2016. Her hematocrit was 28% on the 6th postoperative day. She was seen by the internal medicine service and was given sliding scale insulin. She was also seen and treated by the infectious disease service. Her right hkyxy-olf-itjv amputation dressing was changed on the 6th postoperative day. The wound was clean and dry and appeared to be healing well. Her right hand wound also showed excellent progression of healing. C-reactive protein was 2.7 on the 6th postoperative day. Vital signs were stable with no evidence of fever. She was ready for discharge on the 6th postoperative day. FINAL DIAGNOSES 1. Right failed nhvqr-xcg-vtxc amputation. 2. Right palmar hand infection. 3. Insulin dependent diabetes. 4. Chronic kidney disease stage 3. 5. Anemia of chronic disease. 6. Peripheral vascular disease. 7. Chronic obstructive pulmonary disease. 8. Chronic pain syndrome. Unit #: [id number] #: [id number] Patient: RAJ VALVERDE DISPOSITION/RECOMMENDATIONS 1. The patient is discharged to rehabilitation. She will continue occupational therapy for her right hand and physical therapy for strengthening of the upper extremities. 2. Her right kuglx-spv-jbdf amputation dressing can be left intact. Keep this wound clean and dry for now. 3. Keep right hand dressing clean, dry and intact. 4. Follow up in my office in one week for dressing change, stitch removal and staple removal. DISCHARGE MEDICATIONS 1. Budesonide inhaler 0.5 mg inhaled b.i.d. 2. Advair 250/50 Diskus 1 puff inhaled q.12 h. p.r.n. shortness of breath. 3. Formoterol fumarate 1 puff inhaled b.i.d. 4. Ipratropium/albuterol sulfate 0.5/3 mg per 3 ml inhaled q.4 h. p.r.n. shortness of breath. 5. Triamcinolone 0.5% cream applied topically to both legs b.i.d. 6. Olmesartan medoxomil 20 mg p.o. daily. 7. Magnesium oxide 400 mg p.o. b.i.d. 8. Zyvox 600 mg p.o. q.12 h., with last dose being 10/22/2016. 9. Lovenox 30 mg subcutaneous daily for 10 days. 10. Neurontin 100 mg p.o. q.8 h. 11. Cymbalta 60 mg p.o. q.a.m. 12. Prozac 20 mg p.o. daily. 13. Trazodone 100 mg p.o. at nighttime. 14. Claritin 10 mg p.o. daily. 15. Diltiazem 120 mg p.o. q. afternoon. 16. Colace 100 mg p.o. b.i.d. 17. Lipitor 40 mg p.o. at nighttime. 18. Clonidine 0.3 mg p.o. q.8 h. 19. Zestril 5 mg p.o. daily. 20. Levemir insulin 20 units subcutaneously q.a.m. 21. NovoLog insulin sliding scale. 22. Levemir 28 units subcutaneously at nighttime. 23. Ferrous gluconate 324 mg p.o. b.i.d. 24. Famotidine 20 mg p.o. daily. 25. Percocet 7.5/325 mg 1 p.o. q.6 h. p.r.n. pain, dispensed 60. 26. Omeprazole 20 mg p.o. daily. 27. Calcium carbonate with vitamin D3 1 each p.o. daily. 28. Vitamin D 50,000 units p.o. weekly. We will refer the patient to a manager printing after she is seen in my office in one week. Dictated by..Jagdeep Martinez/mason TD: 10/19/2016 14:16 JOB #: [id number] CC: Payton Iqbal M.D. Unit #: [id number] #: [id number] Patient: RAJ VALVERDE DISCHARGE SUMMARY Page 1 of 1 X Ferdinand Iqbal MD X DISCHARGE SUMMARY
--- NOTE | ~2016-10-12 | OR ---
Unit #: [id number] #: [id number] Patient: RAJ VALVERDE [id number] [address] [place], [place] [address] [id number] MR#: [id number] NAME: RAJ VALVERDE ROOM: 461 Date of Procedure: 10/13/2016 Admission Date: 10/12/2016 Surgeon: Payton Iqbal M.D. : 1955 Attending Physician: Payton Iqbal M.D. Primary Care Physician: Cristian Adair D.O. OPERATIVE REPORT PREOPERATIVE DIAGNOSES 1. Right failed rclrm-rdp-udae amputation. 2. Right hand postoperative palmar infection. POSTOPERATIVE DIAGNOSES 1. Right failed uoozr-ryq-tfnq amputation. 2. Right hand postoperative palmar infection. PROCEDURES PERFORMED 1. Right bzmso-gev-glqz amputation (40691). 2. Right hand postoperative carpal tunnel incision and drainage (05134). PARKING INSPECTOR DONNY Crystal. ANESTHESIA General. INDICATIONS FOR SURGERY The patient is a 60-year-old poorly controlled diabetic with diabetic neuropathy, who is 3-1/2 weeks status post right lhhlf-att-bzue amputation. She also underwent right hand incision and drainage for septic flexor tenosynovitis of all fingers and of her carpal tunnel. Unfortunately, her ughne-rsc-jadx amputation healing has failed and her posterior flap is necrotic. She is therefore to undergo revision to ontww-rdw-jywl amputation. Additionally, she has residual pain in her palm with a pointing abscess in the palm. Her fingers are much improved. DESCRIPTION OF PROCEDURE The patient was taken to the operating room, placed in a supine position and general anesthetic was induced. The right hand and right leg were marked preoperatively in the anesthesia holding area. They were identified as the correct operative locations during the time-out procedure. The IV antibiotic protocol was not followed, because she was on preoperative vancomycin and Zosyn. The right leg and right hand were then prepped and draped in the usual sterile fashion. Beginning with the right leg, right residual limb was exsanguinated with an Esmarch bandage, which was left wrapped around the proximal thigh to act as a tourniquet. Anterior and posterior fishmouth incisions were made just above the knee joint. Dissection proceeded directly down to the femur, which was exposed subperiosteally. The superficial femoral artery and vein were then identified and doubly ligated with 0 silk. The femur was then cut in the Unit #: [id number] #: [id number] Patient: RAJ VALVERDE supracondylar region with the soft cultures were taken of the intramedullary canal of the femur. The four drill holes were then made in the anterior femoral cortex with a 2 mm diameter drill bit. The posterior soft tissues were cut with the amputation knife and the leg was sent to pathology for examination. The wound was copiously irrigated. The anterior quadriceps tendon was then sutured to the anterior femur through the four drill holes using #2 FiberWire suture. A medium Hemovac drain was placed. The muscle fascia anteriorly was repaired to the posterior muscle fascia with multiple 0 Vicryl ihfsrp-qn-xdoku sutures. Subcutaneous tissue was closed with 2-0 Vicryl and 3-0 Vicryl. The skin was closed with skin ezekiel. Xeroform gauze was applied. Attention was directed to the hand. The hand was not exsanguinated. The carpal tunnel incision was opened with a knife. A small amount of purulent fluid was obtained and this was sent for culture and sensitivity for both aerobic and anaerobic bacteria. The carpal tunnel was entered and the tendons were retracted radially. The carpal tunnel was then irrigated with 1 L of normal saline. A small Hutchinson drain was placed and the skin was closed with interrupted 3-0 nylon horizontal mattress sutures. Xeroform gauze, dressing, sponges, Kerlix, and Finesse wrap were applied. The right leg was dressed with a dressing sponges, Kerlix, two Finesse wraps, and Elastoplast tape. The patient was then awakened in the operating room and transported to the recovery room in stable condition. ESTIMATED BLOOD LOSS 100 mL. COMPLICATIONS None. SPECIMENS 1. Right leg. 2. Right tibial cultures. 3. Right hand cultures. TOURNIQUET TIME 30 minutes for the right leg. Dictated byRadha Iqbal M.D. MANI/jaylan TD: 10/13/2016 23:02 JOB #: [id number] Unit #: [id number] #: [id number] Patient: RAJ VALVERDE OPERATIVE REPORT Page 1 of 1 X Ferdinand Iqbal MD PROCEDURE OPERATIVE NOTE
--- NOTE | ~2016-10-12 | HP ---
Unit #: [id number] #: [id number] Patient: RAJ VALVERDE [id number] [address] [place], [place] [address] [id number] I MR#: [id number] NAME: RAJ VALVERDE ROOM: 461 Age: 60 Sex: F Admission Date: 10/12/2016 : 1955 Attending Physician: Payton Iqbal M.D. Primary Care Physician: Cristian Adair D.O. HISTORY AND PHYSICAL CHIEF COMPLAINT 1. Failed right below the knee amputation. 2. Right hand postoperative wound infection. HISTORY OF PRESENT ILLNESS This 60-year-old female with insulin dependent diabetes, diabetic neuropathy and history of multiple right foot surgeries as well as a left below the knee amputation, underwent right qhtjk-xiv-taqi amputation wbpuf-wfh-y-half weeks ago. She now has a dehiscence of the wound and this has failed to heal. She is therefore admitted for tcclz-eky-kurn amputation. The patient also underwent right carpal tunnel release and incision and drainage of septic flexor tenosynovitis of the thumb, index finger, middle finger, ring finger, and small finger. Her fingers have healed but she now has fluctuance in her palmar wound and she is to undergo incision and drainage of this wound as well. PAST MEDICAL HISTORY Past medical history is remarkable for insulin dependent diabetes, chronic kidney disease stage 3, hypertension, anemia of chronic disease, hyperlipidemia, peripheral vascular disease with previous leg stents and previous left and right below the knee amputation, COPD, history of tobacco abuse, cervical cancer, chronic pain syndrome. PAST SURGICAL HISTORY Bilateral below the knee amputations, bilateral lower extremity stenting, herniorrhaphy, hysterectomy. HOME MEDICATIONS Levemir insulin, Colace, Prozac, Os-Adelfo, Symbicort, Lipitor, Neurontin, lisinopril, Claritin, magnesium oxide, clonidine, trazodone, Protonix, Norvasc, Benicar and sliding scale insulin. MEDICAL ALLERGIES Adhesives, penicillin, daptomycin, Cubicin, latex. SOCIAL HISTORY The patient is a past smoker who no longer smokes. She has been currently living in rehabilitation. She denies alcohol or drug abuse. FAMILY HISTORY The patient is a foster child and does not know about her family. Unit #: [id number] #: [id number] Patient: RAJ VALVERDE PHYSICAL EXAMINATION GENERAL: In general this is an obese female in no acute distress. HEENT: The pharynx is clear. NECK: The neck is supple, without masses. HEART: Exam reveals a regular sinus rhythm without murmurs or gallops. LUNGS: The lungs are clear. ABDOMEN: The abdomen is soft and nontender. EXTREMITIES: Examination of the right hand demonstrates fluctuance in her palmar wound. Her finger incisions are all healed. She can almost fully extend her fingers and flexes her fingers to about 90 degrees at the interphalangeal joints. Evaluation of the right vcufx-moj-iqxi amputation wound shows complete dehiscence of the entire wound with necrosis and early purulent drainage. ADMITTING DIAGNOSES 1. Failed right wblib-mtl-kgpy amputation. 2. Right palmar hand postoperative infection cxjpe-ogf-j-half weeks status post carpal tunnel release and multiple flexor tenosynovial releases for flexor septic tenosynovitis. 3. Insulin dependent diabetes. 4. Diabetic neuropathy. 5. Chronic kidney disease. PLAN 1. The patient is admitted for revision of her xqcpd-tty-ixle amputation to an xgduk-dfu-wdrz amputation. 2. She will also undergo incision and drainage of her right palmar wound. 3. Will continue vancomycin for now and will order Infectious Disease consultation postoperatively. Dictated by Jagdeep Nguyen/dolores TD: 10/12/2016 17:28 JOB #: [id number] HISTORY AND PHYSICAL Page 1 of 1 X Ferdinand Iqbal MD X HISTORY AND PHYSICAL
--- NOTE | ~2016-10-12 | A ---
[facility] Nutrition Therapy DATE: 10/14/16 Patient: RAJ VALVERDE Physician: ANITHA Address: [address] [facility] Room/Bed: [address] [place] [address], Zip: [place] [address] Admit Date: 10/12/16 Date of : [birth year] Height: Weight: 149 68.03 NUTRITIONAL ASSESSMENT: REASON: CONSULT RE: DM DIET EDUCATION PT IS 60 Y.O. FEMALE ADMITTED FOR OSTEOMYELITIS RD PROVIDED WRITTEN AND VERBAL CC DIET EDUCATION. RD PROVIDED LIST OF FOODS TO AVOID/LIMIT AND FOODS TO EAT MOTE OFTEN WELL ENCOURAGED PT TO EAT 3 BALANCED MEALS + SNACKS DAILY. RD ALSO EMPHASIZED IMPORTANCE OF CUTTING BACK/AVOIDING SUGAR-SWEETENED BEVERAGES. PT REPORTS CONSUMING 2-3 MEALS DAILY + DRINKS TEA, POWERADE AND DIET SODAS. PT WILLING TO CUT BACK ON TEA AND POWERADE AND DRINK MORE WATER. PT DEMONSTRATED UNDERSTANDING OF THE TOPIC. PT REPORTED NO DIET QUESTIONS AT THIS TIME. RD TO REMAIN AVAILABLE. RECOMMENDATIONS: 1. ENCOURAGE COMPLIANCE OF CURRENT DIET ORDER-CC 2. RE-CONSULT RD IF FURTHER DIET EDUCATION REQUESTED RD WILL F/U PROTOCOL Respectfully, VINCENT VERA MS, RD, LD [facility] and Nutritional Services [facility] cc: client file
--- NOTE | ~2016-10-12 | CR72 ---
[facility] A Service of [facility] & [facility] RADIOLOGY TEXT RESULTS PATIENT: RAJ VALVERDE LOCATION: [facility] 461-01 : [birth year] UNIT #: [id number] AGE: [address]: Ferdinand Iqbal MD SEX: F ORDER DR: [id number] [facility] [address] [place], [place] [address] [id number] MR#: [id number] Acc #: [id number] NAME: RAJ VALVERDE : 1955 SEX: F STUDY DATE/TIME: 10/14/2016 11:41 UNIT: [facility] ROOM: [facility] STUDY DESCRIPTION: CR Chest Single View Portable Attending Physician: Payton Iqbal M.D. Ordering Physician: Viji Frias A.P.R.N. Primary Care Physician: Cristian Adair D.O. MEDICAL IMAGING REPORT This report is preliminary unless electronic signature is present EXAM Chest, portable, 10/14/2016, 1141 hours. CLINICAL HISTORY 60-year-old 1-day postop leg amputation complaining of shortness of air. COMPARISON 05/24/2016 FINDINGS Portable upright chest demonstrates a left PICC line with tip in mid SVC. There is no pneumothorax. Heart size is within normal limits with stable mildly tortuous aorta. Lung volumes are low but the lungs are clear. IMPRESSION 1. Left PICC line tip in the mid SVC. 2. Low lung volumes with no acute cardiopulmonary findings. Dictated by... Audrey Decker M.D. THIS IS AN ELECTRONICALLY VERIFIED REPORT Audrey Decker M.D. at 10/14/2016 2:29 PM SARINA/moises TD: 10/14/2016 14:16 JOB #: [id number] MEDICAL IMAGING REPORT Page 1 of 1 COPY
[~2016-10-12 17:48] MED LIST changes: +CARDIZEM SR PO; +CYMBALTA30 M1 PO; +FERROUS GL324 ( 36 ) PO; +IPRATR-ALBUTEROL3 ML INH; +OLMESARTAN MEDO20 MG PO; +XARELTO10 MG PO
[2016-10-12 19:34] LABS: BASOPHIL# 0.1 X10e3 (0-0.3); BASOPHIL% 0.8 % (0-2.5); EOSINOPHIL# 0.1 X10e3 (0-0.7); HEMATOCRIT 30.2 % (35.0-45.0); HEMOGLOBIN 9.5 gm/dL (12.0-16.0); LYMPHOCYTE# 1.4 X10e3 (1.0-3.5); LYMPHOCYTE% 11.2 % (17.0-45.0); MEAN CELL VOLUME 83.7 FL (83-96); MEAN CORPUSCULAR HEMOGLOBIN 26.4 PG (28-34); MEAN CORPUSCULAR HGB CONC 31.5 g/dL (30-36); MEAN PLATELET VOLUME 6.6 FL (6.5-11.5); MONOCYTE# 0.7 X10e3 (0-1.0); MONOCYTE% 5.3 % (3.0-12.0); NEUTROPHIL# 10.4 X10e3 (1.5-7.1); NEUTROPHIL% 81.7 % (40-75); PLATELET COUNT 275 X10e3 (140-420); RED BLOOD COUNT 3.61 X10e (3.90-5.30); RED CELL DISTRIBUTION WIDTH 20.2 % (11.0-15.5); WHITE BLOOD COUNT 12.8 X10e3 (4.0-10.5)
[2016-10-12 19:41] LABS: DIFF IND NO
[2016-10-12] MEDS ORDERED: NOVOLOG100 U/ML (19:47)
[2016-10-12 19:49] LABS: INR 1.2
[2016-10-12] MEDS ORDERED: OMEPRAZOLE20 M1 PO (19:49)
[2016-10-12] MEDS ORDERED: LEVEMIR100 UNITS/ (19:54)
[2016-10-12 19:55] LABS: GLOM FILT RATE Estimated 62.1 mL/min (>60); POTASSIUM 3.5 mmol/L (3.5-5.1)
[2016-10-12] MEDS ORDERED: LISINOPRIL5 MG PO (19:55)
[2016-10-12] MEDS ORDERED: FAMOTIDINE10 MG PO (19:59)
[2016-10-12] MEDS ORDERED: PERFOROMIS20 MCG/2 M INH (20:00)
[2016-10-12] MEDS ORDERED: TEFLARO600 MG IV (20:04)
[2016-10-12] MEDS ORDERED: DOCUSATE SODIU100 MG PO (20:07)
[2016-10-12] MEDS ORDERED: BUDESONIDE0.5 MG/2 M INH (20:08)
[2016-10-12] MEDS ORDERED: LIPITOR40 MG PO (20:08)
[2016-10-12] MEDS ORDERED: CALCIUM 500 +1 EAC3 PO (20:09)
[2016-10-13 02:42] LABS: HEMATOCRIT 26.8 % (35.0-45.0); HEMOGLOBIN 8.6 gm/dL (12.0-16.0); MEAN CELL VOLUME 83.6 FL (83-96); MEAN CORPUSCULAR HEMOGLOBIN 26.8 PG (28-34); MEAN PLATELET VOLUME 6.7 FL (6.5-11.5); RED BLOOD COUNT 3.21 X10e (3.90-5.30); RED CELL DISTRIBUTION WIDTH 20.2 % (11.0-15.5); WHITE BLOOD COUNT 7.4 X10e3 (4.0-10.5)
[2016-10-13 03:18] LABS: ALBUMIN SERUM 1.1 g/dL (3.5-5.0); BILIRUBIN,TOTAL 0.5 mg/dL (0.2-2.0); CALCIUM SERUM 7.5 mg/dL (8.4-10.2); CREATININE SERUM 1.2 mg/dL (0.6-1.4); GLOM FILT RATE Estimated 49.8 mL/min (>60); POTASSIUM 3.9 mmol/L (3.5-5.1); PROTEIN TOTAL SERUM 4.6 g/dL (6.0-8.3)
[2016-10-14 02:48] LABS: URINE SOURCE CLEAN CATCH
[2016-10-14 02:57] LABS: URINE APPEARANCE CLEAR; URINE BILIRUBIN NEG (NEG); URINE BLOOD 2+ (NEG); URINE COLOR YELLOW; URINE GLUCOSE >1000 MG/DL (NEG); URINE KETONE NEG (NEG); URINE LEUKOCYTE ESTERASE NEG (NEG); URINE NITRATE NEG (NEG); URINE PH 6.5 (5-8); URINE PROTEIN 3+ (NEG); URINE SPECIFIC GRAVITY 1.021 (1.003-1.035); URINE UROBILINOGEN 0.2 MG/DL (NEG)
[2016-10-14 03:01] LABS: URBCS1 AUWI 50-100 /[HPF] (0-2); URINE BACTERIA AUWI NEG (NEGATIVE); URINE SQUAMOUS EPITHELIAL CELL OCC /[HPF]
[2016-10-14 03:02] LABS: U HYALINE CASTS AUWI 0-2 /[LPF]
[2016-10-14 03:28] LABS: HEMATOCRIT 23.7 % (35.0-45.0); HEMOGLOBIN 7.5 gm/dL (12.0-16.0); MEAN CELL VOLUME 84.2 FL (83-96); MEAN CORPUSCULAR HEMOGLOBIN 26.6 PG (28-34); MEAN CORPUSCULAR HGB CONC 31.6 g/dL (30-36); MEAN PLATELET VOLUME 6.6 FL (6.5-11.5); RED BLOOD COUNT 2.81 X10e (3.90-5.30); RED CELL DISTRIBUTION WIDTH 20.1 % (11.0-15.5); WHITE BLOOD COUNT 9.9 X10e3 (4.0-10.5)
[2016-10-14 03:47] LABS: BUN/CREATININE RATIO 23.07; CALCIUM SERUM 7.3 mg/dL (8.4-10.2); CREATININE SERUM 1.3 mg/dL (0.6-1.4); GLOM FILT RATE Estimated 45.2 mL/min (>60); POTASSIUM 3.4 mmol/L (3.5-5.1)
[2016-10-15 03:57] LABS: HEMATOCRIT 21.7 % (35.0-45.0); MEAN CELL VOLUME 84.5 FL (83-96); MEAN PLATELET VOLUME 7.1 FL (6.5-11.5); RED BLOOD COUNT 2.57 X10e (3.90-5.30); RED CELL DISTRIBUTION WIDTH 19.6 % (11.0-15.5); WHITE BLOOD COUNT 7.5 X10e3 (4.0-10.5)
[2016-10-15 04:10] LABS: HEMOGLOBIN 6.9 gm/dL (12.0-16.0)
[2016-10-15 04:22] LABS: BUN/CREATININE RATIO 22.14; CALCIUM SERUM 7.2 mg/dL (8.4-10.2); CREATININE SERUM 1.4 mg/dL (0.6-1.4); GLOM FILT RATE Estimated 41.3 mL/min (>60); MAGNESIUM 1.9 mg/dL (1.6-3.0); POTASSIUM 4.4 mmol/L (3.5-5.1)
[2016-10-15 16:26] LABS: URINE APPEARANCE CLEAR; URINE BILIRUBIN NEG (NEG); URINE BLOOD 3+ (NEG); URINE COLOR YELLOW; URINE GLUCOSE 500 MG/DL (NEG); URINE KETONE NEG (NEG); URINE LEUKOCYTE ESTERASE NEG (NEG); URINE NITRATE NEG (NEG); URINE PROTEIN 3+ (NEG); URINE SPECIFIC GRAVITY 1.025 (1.003-1.035); URINE UROBILINOGEN 0.2 MG/DL (NEG)
[2016-10-15 16:29] LABS: URBCS1 AUWI 50-100 /[HPF] (0-2); URINE BACTERIA AUWI NEG (NEGATIVE); URINE SQUAMOUS EPITHELIAL CELL MOD /[HPF]
[2016-10-15 17:03] LABS: URINE AMORPHOUS SEDIMENT AMORP URATES; URINE YEAST PRESENT
[2016-10-16 03:15] LABS: BASOPHIL# 0.1 X10e3 (0-0.3); BASOPHIL% 0.6 % (0-2.5); EOSINOPHIL# 0.4 X10e3 (0-0.7); EOSINOPHIL% 3.8 % (0.0-7.0); HEMATOCRIT 28.8 % (35.0-45.0); LYMPHOCYTE# 1.7 X10e3 (1.0-3.5); LYMPHOCYTE% 17.9 % (17.0-45.0); MEAN CELL VOLUME 83.9 FL (83-96); MEAN CORPUSCULAR HEMOGLOBIN 27.5 PG (28-34); MEAN CORPUSCULAR HGB CONC 32.7 g/dL (30-36); MEAN PLATELET VOLUME 6.6 FL (6.5-11.5); MONOCYTE# 0.8 X10e3 (0-1.0); MONOCYTE% 8.3 % (3.0-12.0); NEUTROPHIL# 6.4 X10e3 (1.5-7.1); NEUTROPHIL% 69.4 % (40-75); PLATELET COUNT 227 X10e3 (140-420); RED BLOOD COUNT 3.44 X10e (3.90-5.30); RED CELL DISTRIBUTION WIDTH 18.6 % (11.0-15.5); WHITE BLOOD COUNT 9.2 X10e3 (4.0-10.5)
[2016-10-16 03:19] LABS: HEMOGLOBIN 9.4 gm/dL (12.0-16.0)
[2016-10-16 03:20] LABS: DIFF IND NO
[2016-10-16 03:44] LABS: BUN/CREATININE RATIO 27.27; CALCIUM SERUM 7.6 mg/dL (8.4-10.2); CREATININE SERUM 1.1 mg/dL (0.6-1.4); GLOM FILT RATE Estimated 55.3 mL/min (>60); MAGNESIUM 1.8 mg/dL (1.6-3.0); POTASSIUM 4.1 mmol/L (3.5-5.1)
[2016-10-17 04:27] LABS: HEMATOCRIT 29.1 % (35.0-45.0); HEMOGLOBIN 9.3 gm/dL (12.0-16.0); MEAN CELL VOLUME 84.1 FL (83-96); MEAN CORPUSCULAR HEMOGLOBIN 26.8 PG (28-34); MEAN CORPUSCULAR HGB CONC 31.9 g/dL (30-36); MEAN PLATELET VOLUME 6.6 FL (6.5-11.5); RED BLOOD COUNT 3.46 X10e (3.90-5.30); RED CELL DISTRIBUTION WIDTH 17.8 % (11.0-15.5)
[2016-10-17 04:55] LABS: CALCIUM SERUM 7.7 mg/dL (8.4-10.2); GLOM FILT RATE Estimated 62.1 mL/min (>60); MAGNESIUM 1.8 mg/dL (1.6-3.0); POTASSIUM 3.9 mmol/L (3.5-5.1)
[2016-10-18 04:28] LABS: BASOPHIL# 0.1 X10e3 (0-0.3); BASOPHIL% 0.8 % (0-2.5); DIFF IND NO; EOSINOPHIL# 0.4 X10e3 (0-0.7); EOSINOPHIL% 3.4 % (0.0-7.0); HEMATOCRIT 28.4 % (35.0-45.0); HEMOGLOBIN 9.2 gm/dL (12.0-16.0); LYMPHOCYTE# 1.5 X10e3 (1.0-3.5); LYMPHOCYTE% 13.4 % (17.0-45.0); MEAN CELL VOLUME 84.4 FL (83-96); MEAN CORPUSCULAR HEMOGLOBIN 27.2 PG (28-34); MEAN CORPUSCULAR HGB CONC 32.2 g/dL (30-36); MEAN PLATELET VOLUME 6.9 FL (6.5-11.5); MONOCYTE# 0.5 X10e3 (0-1.0); MONOCYTE% 4.7 % (3.0-12.0); NEUTROPHIL# 8.8 X10e3 (1.5-7.1); NEUTROPHIL% 77.7 % (40-75); PLATELET COUNT 189 X10e3 (140-420); RED BLOOD COUNT 3.37 X10e (3.90-5.30); RED CELL DISTRIBUTION WIDTH 18.2 % (11.0-15.5); WHITE BLOOD COUNT 11.3 X10e3 (4.0-10.5)
[2016-10-18 04:46] LABS: BUN/CREATININE RATIO 23.63; CALCIUM SERUM 7.8 mg/dL (8.4-10.2); CREATININE SERUM 1.1 mg/dL (0.6-1.4); GLOM FILT RATE Estimated 55.3 mL/min (>60); POTASSIUM 3.7 mmol/L (3.5-5.1)
[2016-10-19 02:49] LABS: BASOPHIL# 0.1 X10e3 (0-0.3); BASOPHIL% 1.2 % (0-2.5); DIFF IND NO; EOSINOPHIL# 0.3 X10e3 (0-0.7); EOSINOPHIL% 2.8 % (0.0-7.0); LYMPHOCYTE# 1.8 X10e3 (1.0-3.5); LYMPHOCYTE% 15.7 % (17.0-45.0); MEAN CELL VOLUME 83.7 FL (83-96); MEAN CORPUSCULAR HGB CONC 32.2 g/dL (30-36); MEAN PLATELET VOLUME 6.6 FL (6.5-11.5); MONOCYTE# 0.6 X10e3 (0-1.0); MONOCYTE% 5.5 % (3.0-12.0); NEUTROPHIL# 8.6 X10e3 (1.5-7.1); NEUTROPHIL% 74.8 % (40-75); PLATELET COUNT 183 X10e3 (140-420); RED BLOOD COUNT 3.35 X10e (3.90-5.30); RED CELL DISTRIBUTION WIDTH 18.2 % (11.0-15.5); WHITE BLOOD COUNT 11.4 X10e3 (4.0-10.5)
[2016-10-19 03:14] LABS: BUN/CREATININE RATIO 22.72; CALCIUM SERUM 7.8 mg/dL (8.4-10.2); CREATININE SERUM 1.1 mg/dL (0.6-1.4); GLOM FILT RATE Estimated 55.3 mL/min (>60); POTASSIUM 3.5 mmol/L (3.5-5.1)
== END 2016-10-19 16:30 | DRG 857 ==
LOC: CEDOF 17:48 → C4C 18:07
PROVIDERS: Internal Medicine; Nurse Practitioner; Nurse Practitioner Family; Orthopaedic Surgery; Physician Assistant
PROC: 30233N1 Transfusion of Nonautologous Red Blood Cells into Peripheral Vein, Percutaneous Approach (ICD-10-PCS; 2016-10-13)
PROC: 0Y670ZZ Detachment at Right Femoral Region, Open Approach (ICD-10-PCS; principal; 2016-10-13 13:30)
PROC: 0J9J00Z Drainage of Right Hand Subcutaneous Tissue and Fascia with Drainage Device, Open Approach (ICD-10-PCS; 2016-10-13 13:30)
DX: T81.4XXA Infection following a procedure, initial encounter (principal); L03.113 Cellulitis of right upper limb; E11.22 Type 2 diabetes mellitus with diabetic chronic kidney disease; E11.40 Type 2 diabetes mellitus with diabetic neuropathy, unspecified; L02.511 Cutaneous abscess of right hand; T87.81 Dehiscence of amputation stump; Z79.4 Long term (current) use of insulin; D63.1 Anemia in chronic kidney disease; I73.9 Peripheral vascular disease, unspecified; J44.9 Chronic obstructive pulmonary disease, unspecified; G89.4 Chronic pain syndrome; I12.9 Hypertensive chronic kidney disease with stage 1 through stage 4 chronic kidney disease, or unspecified chronic kidney disease; N18.3 Chronic kidney disease, stage 3 (moderate); E78.5 Hyperlipidemia, unspecified; Z85.41 Personal history of malignant neoplasm of cervix uteri; Z90.710 Acquired absence of both cervix and uterus; Z89.512 Acquired absence of left leg below knee; Z89.511 Acquired absence of right leg below knee; Z88.0 Allergy status to penicillin; Z91.040 Latex allergy status; Z87.891 Personal history of nicotine dependence; Z86.14 Personal history of Methicillin resistant Staphylococcus aureus infection; E87.6 Hypokalemia; R31.29 Other microscopic hematuria; F41.9 Anxiety disorder, unspecified; F32.9 Major depressive disorder, single episode, unspecified; M62.3 Immobility syndrome (paraplegic)
CPT/HCPCS: 71010; 80048; 80053; 80061; 80202; 81003; 82947; 83036; 83735; 85025; 85027; 85610; 85652; 86140; 86850; 86900; 86901; 86923; 87040; 87070; 87075; 87086; 87205; 88307; 88311; 94640; 94760; 97110; 97163; 97167; 97530; 97535; G8978-GP; G8979-GP; G8987-GO; G8988-GO; J0330; J0360; J0712; J1650; J1815; J2270; J2405; J3010; J3370; P9016